=== PATIENT | male | born 1965 | race American Indian/Alaskan Native ===

== ENCOUNTER 2016-12-01 14:17 | Inpatient (IN) | payer OTHER ==
[2016-12-01] MEDS ORDERED: CATAPRES PO ONE (15:36)
[2016-12-01] MEDS ORDERED: CATAPRES ONE (15:39)
--- NOTE | 2016-12-01 15:41 | Emergency Department Report ---
Chief Complaint: Headache Stated Complaint: OUT OF BREATH Time Seen by Provider: 12/01/16 15:30 - HPI History of Present Illness: Patient reports that he has shortness of breath and right side of his head is painful 9 out of 10. Patient has elevated blood pressure 222/132 he said he's been told that he has high blood pressure but does not take any medication. He said he is also having numbness to the right side of his head. He denies any chest pain. He is also having some blurry vision. - ROS Review of Systems: All systems are negative unless stated in HPI above - Exam Vital Signs: Vital Signs 12/01/16 14:43 Temperature 99.0 F Pulse Rate 87 Respiratory 17 Rate Blood Pressure 222/132 O2 Sat by Pulse 99 Oximetry Physical Exam: Gen.: This is a 51-year-old male well-nourished well-developed in no acute distress Mini neurological exam: Speech is clear and fluid, GCS of 15, gait is normal. Alert and oriented 3. No facial drooping noted. Lungs: Positive coughing, normal work of breathing. Clear to auscultate bilaterally. MSE screening note: Focused history and physical exam performed. Due to findings the following was ordered: ED Medical Decision Making - Medical Decision Making MDM: Patient screened by provider in triage area. Appropriate protocol initiated and patient to be seen in main ED by ED Disposition for MSE Condition: Stable
[2016-12-01 16:34] LABS: Alanine Aminotransferase 10 units/L (7-56); Albumin 4.3 g/dL (3.9-5); Albumin/Globulin Ratio 1.4 %; Alkaline Phosphatase 92 units/L (35-129); Anion Gap 15 mmol/L; BUN/Creatinine Ratio 14; Blood Urea Nitrogen 15 mg/dL (9-20); Calcium 9.6 mg/dL (8.4-10.2); Carbon Dioxide 29 mmol/L (22-30); Chloride 99.2 mmol/L (98-107); Glucose 103 mg/dL (75-100); Sodium 138 mmol/L (137-145); Total Protein 7.3 g/dL (6.3-8.2)
[2016-12-01 16:42] LABS: Basophils % (Auto) 1.2 % (0.0-1.8); Eosinophils % (Auto) 2.3 % (0.0-4.3); Hematocrit 46.3 % (35.5-45.6); Hemoglobin 15.5 gm/dl (11.8-15.2); Mean Corpuscular HGB Conc 34 % (32-34); Mean Corpuscular Hemoglobin 29 pg (28-32); Mean Corpuscular Volume 87 fl (84-94); Platelet Count 262 K/mm3 (140-440); Red Blood Count 5.31 M/mm3 (3.65-5.03); Red Cell Distribution Width 13.9 % (13.2-15.2); White Blood Count 9.5 K/mm3 (4.5-11.0)
--- NOTE | 2016-12-01 16:47 | Cat Scan Report ---
CT HEAD WITHOUT CONTRAST INDICATION: Headache. COMPARISON: None similar. FINDINGS: Noncontrast head CT demonstrates normal ventricles and sulci without acute or recent infarct, hemorrhage, mass effect or midline shift. No abnormal extra-axial fluid collections. Posterior fossa structures and basilar cisterns appear within normal limits. Mild right frontal, ethmoid and slight bilateral sphenoid sinus mucosal thickening partially imaged. Clear remainder imaged paranasal sinuses and mastoid air cells. Partially empty sella. Intact calvarium. Normal overlying scalp soft tissues. Few radiopaque dental material incidentally noted. Cervical spondylosis. CONCLUSION: No acute intracranial CT abnormality with various other findings, as described. Thank you for the opportunity to participate in this patient's care.
[2016-12-01 16:53] LABS: INR 0.94 (0.87-1.13)
[2016-12-02] MEDS ORDERED: ATROVENT IH ONE (03:32)
[2016-12-02] MEDS ORDERED: APRESOLINE IV ONE ×3 (03:32→20:57)
[2016-12-02] MEDS ORDERED: PROVENTIL IH ONE (03:32)
--- NOTE | 2016-12-02 03:35 | XRay Report ---
FINAL REPORT EXAM: XR CHEST ROUTINE 2V HISTORY: SOB TECHNIQUE: PA and lateral views of the chest were submitted. FINDINGS: Heart size mediastinum appear normal. The thoracic aorta is mildly tortuous. There blunting of the right costophrenic angle secondary to localized scarring versus small effusion. There are no localized infiltrates. The skeletal structures reveal mild disc degeneration in the thoracic spine. IMPRESSION: Small right-sided effusion versus localized scarring. No acute infiltrates or congestion.
[2016-12-02 04:24] LABS: Creatine Kinase MB 1.2 ng/mL (0.0-4.0)
[2016-12-02 04:25] LABS: Creatine Kinase 37 units/L (55-170)
--- NOTE | 2016-12-02 04:39 | Emergency Department Report ---
ED Shortness of Breath HPI - General Chief Complaint: Headache Stated Complaint: OUT OF BREATH Time Seen by Provider: 12/01/16 15:41 Source: patient Mode of arrival: Ambulatory Limitations: No Limitations - History of Present Illness Initial Comments: 51-year-old male with a past medical history hypertension and tobacco use presents to the hospital complaining of shortness of breath and headache. Patient has had intermittent right-sided headache 2 weeks. Described as throbbing, aching, and burning. Pain rated 9/10 in intenisty. No agrgrevating or alleviating factors. Patient denies nausea, vomiting, focal weakness or numbness. Patient also complaining of shortness of breath for 1-2 months. Worse with exertion. Positive productive cough reported without fever. Patient continuously denies chest pain. Intermittent wheezing reported. No calf tenderness, recent travel, leg edema. Patient presents significantly hypertensive but states he has not had any blood pressure medication in several years. He denies any previous stress test or family history of CAD/[place]. - Related Data Allergies Allergy/AdvReac Type Severity Reaction Status Date / Time No Known Allergies Allergy Unverified 12/01/16 14:42 ED Review of Systems ROS: Stated complaint: OUT OF BREATH Other details as noted in HPI Comment: All other systems reviewed and negative Other: Constitutional: No fevers chills Eyes: No eye pain visual changes ENT: No ear pain or throat pain Neck: Denies pain Respiratory: as per hpi Cardiovascular: Denies chest pain, palpitations, syncope GI: Denies abdominal pain, nausea, vomiting, diarrhea : Denies dysuria Musculoskeletal: Denies back pain, joint swelling Skin: Denies rash, lesions, erythema Neurologic: as per hpi Psychiatric: Denies suicidal ideation, hallucinations ED Past Medical Hx - Past Medical History Hx Hypertension: Yes - Surgical History Additional Surgical History: right lung surgery for an infection in 2003 - Social History Smoking Status: Current Every Day Smoker Substance Use Type: Alcohol ED Physical Exam - General Limitations: No Limitations - Other Other exam information: General: No limitations, patient is alert in no acute distress Head exam: Atraumatic, normocephalic Eyes exam: Normal appearance ENT: Moist mucous membrane, normal oropharynx Neck exam: Normal inspection, full range of motion, no meningismus nontender Respiratory exam: Bilateral wheezing without tachypnea or accessory muscle use Cardiovascular: Normal rate and rhythm, normal heart sounds Abdomen: Soft, nondistended, and nontender, with normal bowel sounds, no rebound, or guarding Extremity: Full range of motion normal inspection no deformity, no calf tenderness or edema Back: Normal Inspection, full range of motion, no tenderness Neurologic: Alert, oriented x3, cranial nerves intact, no motor or sensory deficit Psychiatric: normal affect, normal mood Skin: Warm, dry, intact ED Course Vital Signs 12/01/16 12/02/16 12/02/16 14:43 02:29 03:05 Temperature 99.0 F 98.5 F Pulse Rate 87 79 81 Pulse Rate [ Posterior Bilateral Bases ] Respiratory 17 18 18 Rate Respiratory Rate [Posterior Bilateral Bases] Blood Pressure 222/132 213/137 Blood Pressure 196/130 [Right] O2 Sat by Pulse 99 98 99 Oximetry 12/02/16 12/02/16 12/02/16 03:35 03:45 04:23 Temperature Pulse Rate 70 80 Pulse Rate [ Posterior Bilateral Bases ] Respiratory 18 18 Rate Respiratory Rate [Posterior Bilateral Bases] Blood Pressure 203/116 Blood Pressure 207/128 [Right] O2 Sat by Pulse 99 99 Oximetry 12/02/16 04:31 Temperature Pulse Rate Pulse Rate [ 109 H Posterior Bilateral Bases ] Respiratory Rate Respiratory 20 Rate [Posterior Bilateral Bases] Blood Pressure Blood Pressure [Right] O2 Sat by Pulse Oximetry - Reevaluation(s) Reevaluation #1: 12/02/16 04:38 Patient clonidine 0.2 mg with minimal improvement in blood pressure. Hydralazine IV also provided. ED Medical Decision Making - Lab Data Result diagrams: 12/01/16 15:56 12/01/16 15:56 Lab Results 12/01/16 12/01/16 12/01/16 Range/Units 15:56 15:56 15:56 WBC 9.5 (4.5-11.0) K/mm3 RBC 5.31 H (3.65-5.03) M/mm3 Hgb 15.5 H (11.8-15.2) gm/dl Hct 46.3 H (35.5-45.6) % MCV 87 (84-94) fl MCH 29 (28-32) pg MCHC 34 (32-34) % RDW 13.9 (13.2-15.2) % Plt Count 262 (140-440) K/mm3 Lymph % (Auto) 23.9 (13.4-35.0) % [place] % (Auto) 7.8 H (0.0-7.3) % Eos % (Auto) 2.3 (0.0-4.3) % Baso % (Auto) 1.2 (0.0-1.8) % Lymph # 2.3 (1.2-5.4) K/mm3 [place] # 0.7 (0.0-0.8) K/mm3 Eos # 0.2 (0.0-0.4) K/mm3 Baso # 0.1 (0.0-0.1) K/mm3 Seg Neutrophils % 64.8 (40.0-70.0) % Seg Neutrophils # 6.2 (1.8-7.7) K/mm3 PT 13.0 (12.2-14.9) Sec. INR 0.94 (0.87-1.13) Sodium 138 (137-145) mmol/L Potassium 5.0 (3.6-5.0) mmol/L Chloride 99.2 (98-107) mmol/L Carbon Dioxide 29 (22-30) mmol/L Anion Gap 15 mmol/L BUN 15 (9-20) mg/dL Creatinine 1.1 (0.8-1.5) mg/dL Estimated GFR > 60 ml/min BUN/Creatinine Ratio 14 % Glucose 103 H (75-100) mg/dL Calcium 9.6 (8.4-10.2) mg/dL Total Bilirubin 1.00 (0.1-1.2) mg/dL AST 12 (5-40) units/L ALT 10 (7-56) units/L Alkaline Phosphatase 92 (35-129) units/L Total Creatine Kinase (55-170) units/L CK-MB (CK-2) (0.0-4.0) ng/mL CK-MB (CK-2) Rel Index (0-4) Troponin T (0.00-0.029) ng/mL Total Protein 7.3 (6.3-8.2) g/dL Albumin 4.3 (3.9-5) g/dL Albumin/Globulin Ratio 1.4 % 12/02/ Range/Units 03:37 WBC (4.5-11.0) K/mm3 RBC (3.65-5.03) M/mm3 Hgb (11.8-15.2) gm/dl Hct (35.5-45.6) % MCV (84-94) fl MCH (28-32) pg MCHC (32-34) % RDW (13.2-15.2) % Plt Count (140-440) K/mm3 Lymph % (Auto) (13.4-35.0) % [place] % (Auto) (0.0-7.3) % Eos % (Auto) (0.0-4.3) % Baso % (Auto) (0.0-1.8) % Lymph # (1.2-5.4) K/mm3 [place] # (0.0-0.8) K/mm3 Eos # (0.0-0.4) K/mm3 Baso # (0.0-0.1) K/mm3 Seg Neutrophils % (40.0-70.0) % Seg Neutrophils # (1.8-7.7) K/mm3 PT (12.2-14.9) Sec. INR (0.87-1.13) Sodium (137-145) mmol/L Potassium (3.6-5.0) mmol/L Chloride (98-107) mmol/L Carbon Dioxide (22-30) mmol/L Anion Gap mmol/L BUN (9-20) mg/dL Creatinine (0.8-1.5) mg/dL Estimated GFR ml/min BUN/Creatinine Ratio % Glucose (75-100) mg/dL Calcium (8.4-10.2) mg/dL Total Bilirubin (0.1-1.2) mg/dL AST (5-40) units/L ALT (7-56) units/L Alkaline Phosphatase (35-129) units/L Total Creatine Kinase 37 L (55-170) units/L CK-MB (CK-2) 1.2 (0.0-4.0) ng/mL CK-MB (CK-2) Rel Index 3.2 (0-4) Troponin T < 0.010 (0.00-0.029) ng/mL Total Protein (6.3-8.2) g/dL Albumin (3.9-5) g/dL Albumin/Globulin Ratio % - EKG Data -: EKG Interpreted by Me (nsr rate 81,lae, lvh, lat t inv, qrs 103, qtc 510) - EKG Data When compared to previous EKG there are: no significant change (01/02/11) - Radiology Data Radiology results: report reviewed (cxr: small r pleural effusion vs scarring) CT head: No acute findings - Medical Decision Making Patient be admitted to the hospital for further blood pressure control, stress testing, and further treatment of reactive airway disease. Addition to by mouth clonidine patient received IV hydralazine, Solu-Medrol, and nebulizer treatments initiated for wheezing. Patient likely has COPD or bronchitis related to smoking and elevated blood pressure secondary to medication noncompliance. No signs of heart failure at this time - Differential Diagnosis mi, unstable angina,copd, bronchitis, effusion, htn emergency, ich Critical Care Time: No Critical care attestation.: If time is entered above; I have spent that time in minutes in the direct care of this critically ill patient, excluding procedure time. ED Disposition Clinical Impression: Uncontrolled hypertension, Noncompliance with medication regimen, Wheezing, Tobacco use, Dyspnea on exertion Disposition: OP ADMIT IP TO THIS HOSP Is pt being admited?: Yes Condition: Stable Time of Disposition: 04:44 (Dr Lang/hosp)
[2016-12-02] MEDS ORDERED: ZOFRAN IV PRN (05:53)
[2016-12-02] MEDS ORDERED: DULCOLAX PR PRN (05:53)
[2016-12-02] MEDS ORDERED: MILK OF MAGNESIA PO PRN (05:53)
[2016-12-02] MEDS ORDERED: TYLENOL PO PRN (05:53)
--- NOTE | 2016-12-02 05:57 | History and Physical Report ---
History of Present Illness Date of examination: 12/02/16 History of present illness: 51-year-old and a history of hypertension, off medication since 2006 [facility] emergency room because he developed shortness of breath. He has been having shortness of breath over the last 6 weeks but his symptoms worsened today, also complaining of dyspnea and exertion, no PND or orthopnea. Also complaining of lower back pain, sharp, intermittent in nature lasting 5 minutes, no radiation cannot identify exacerbating or relieving factors Review Of Systems: Constitutional: no weight loss Ears, eyes, nose, mouth and throat: no nasal congestion, no nasal discharge, no sinus pressure, blurry vision, diplopia Neck: No neck pain or rigidity. Cardiovascular: chest pain, orthopnea, palpitations Respiratory: No cough Gastrointestinal: abdominal pain, hematochezia Genitourinary : no dysuria, frequency , hematuria Musculoskeletal: no muscle ache Integumentary: no rash, no pruritis Neurological: no parathesias, focal weakness Endocrine: no cold or heat intolerance, no polyuria or polydipsia Hematologic/Lymphatic: no easy bruising, no easy bleeding, no gland swelling Allergic/Immunologic: no urticaria, no angioedema. PAST MEDICAL HISTORY:hypertension PAST SURGICAL HISTORY: Surgery on lung FAILY HISTORY:hypertension SOCIAL HISTORY: Smoke a pack a day, drinks 6 beers on weekend, no drugs Medications and Allergies Allergies Allergy/AdvReac Type Severity Reaction Status Date / Time No Known Allergies Allergy Unverified 12/01/16 14:42 Home Medications Medication Instructions Recorded Confirmed Last Taken Type No Known Home Medications [No 12/02/16 12/02/16 Unknown History Reported Home Medications] Exam - Physical Exam Narrative exam: Gen. appearance: Patient lying in bed in no acute distress HEENT: Normocephalic/atraumatic, pupils equal round reactive to light, extra alkaline movement intact, no scleral icterus, no JVD or thyromegaly or nodule, neck is supple, mucous membrane moist, no erythema or exudate Heart: S1-S2, regular rate and rhythm Lungs: Clear to auscultation bilateral breathing comfortable Abdomen: Positive bowel sounds, nontender, nondistended, no organomegaly Extremities: No edema, cyanosis, clubbing Neuro:: Oriented 3 , cranial nerves II-12 intact, speech, motor intact Skin: No rash, nodules, warm dry - Constitutional Vitals: Temp Pulse Resp BP Pulse Ox 98.5 F 82 22 180/104 99 12/02/16 02:29 12/02/16 05:30 12/02/16 05:30 12/02/16 05:30 12/02/16 05:30 Results - Labs CBC & Chem 7: 12/03/16 05:52 12/01/16 15:56 Labs: Abnormal lab results 12/01/16 12/01/16 12/02/16 Range/Units 15:56 15:56 03:37 RBC 5.31 H (3.65-5.03) M/mm3 Hgb 15.5 H (11.8-15.2) gm/dl Hct 46.3 H (35.5-45.6) % [place] % (Auto) 7.8 H (0.0-7.3) % Glucose 103 H (75-100) mg/dL Total Creatine Kinase 37 L (55-170) units/L - Imaging and Cardiology EKG: image reviewed CT Scan - head: report reviewed Assessment and Plan Assessment Hypertensive urgency, malignant Shortness of breath Noncompliance Plan Admit to medicine Start IV hydralazine as needed for blood pressure control, Norvasc Obtain CAT scan of the chest abdomen and pelvis DVT prophylaxis Compliance discuss with patient, verbalize understanding
[2016-12-02] MEDS ORDERED: NACL ONE ×2 (06:04→06:18)
--- NOTE | 2016-12-02 07:19 | Cat Scan Report ---
CT LUMBAR SPINE WITHOUT CONTRAST HISTORY: Back pain. TECHNIQUE: Helical CT imaging in 1.25 mm intervals. Sagittal and coronal reformatted images. FINDINGS: Normal height and alignment lumbar vertebra. No compression deformity, subluxation or bone lesion. Multilevel degenerative changes are identified. Mild disc space narrowing at L4-5. Severe disc space narrowing with osteophytosis at L5-S1. Bridging or near bridging anterior osteophytes are identified at T12-L1 and L4-5. The remaining levels demonstrate mild degenerative disc disease and facet arthropathy. Although evaluation intraspinal contents is limited on CT, no high-grade central canal stenosis or large herniation is suspected. There is moderate bilateral neural foraminal narrowing at L4-5 estimated at least 50%. IMPRESSION: Lumbar spondylosis as described above.
--- NOTE | 2016-12-02 07:23 | Cat Scan Report ---
CT SCAN OF THE ABDOMEN AND PELVIS WITH CONTRAST: HISTORY: Back pain. TECHNIQUE: Helical CT in 1.25mm intervals following IV contrast. Sagittal and coronal reconstructions. FINDINGS: The liver is normal in size and is without focal defect. No gallstones or biliary dilatation are noted. The spleen and pancreas demonstrate a normal size and attenuation with no evidence of abnormal mass. The kidneys are normal in size and position with no evidence of hydronephrosis or mass. 5 mm calyceal stone in the mid left kidney is noted. The adrenal glands are normal. There is no intestinal obstruction or ascites. Normal appendix. The abdominal aorta is normal caliber and without stenosis. No abnormalities are identified within the retroperitoneum or mesentery. There is no evidence of peritoneal air or fluid. There is no evidence of any abnormal masses or fluid collections within the pelvis. No adenopathy is identified. The bladder is normal. Moderate thoracolumbar spondylosis is noted. IMPRESSION: 5 mm nonobstructing left renal stone. No acute process identified.
--- NOTE | 2016-12-02 07:28 | Cat Scan Report ---
CTA CHEST: History: Shortness of breath. Technique: Helical CT following IV contrast. Pulmonary embolus protocol. Sagittal and coronal reformatted images. Rotational MIP images. Findings: Contrast bolus is satisfactory. No pulmonary embolus is identified. Heart size is within normal limits. The aorta is normal caliber and within normal limits. No pericardial effusion. The tracheobronchial tree and esophagus are unremarkable. The thyroid gland is normal size. 7 mm calcification is noted in the lateral left thyroid lobe. No suspicious nodule. The lungs are well-aerated. Minor subpleural scarring is noted at the lobe bases, otherwise the lungs are clear. No significant parenchymal lung disease. No pleural effusion or pneumothorax. Moderate multilevel thoracic spondylosis. No fracture or destructive bony lesion. Impression: No acute cardiopulmonary process identified. Chronic findings outlined above.
[2016-12-02 07:42] LABS: Creatine Kinase MB 1.2 ng/mL (0.0-4.0)
[2016-12-02 07:47] LABS: Creatine Kinase 35 units/L (55-170)
[2016-12-02] MEDS: NORVASC PO SCH (09:09)
[2016-12-02] MEDS: APRESOLINE IV PRN ×2 (09:09→17:05)
[2016-12-02] MEDS: LOVENOX SUB-Q SCH (09:10)
[2016-12-02] MEDS ORDERED: LOVENOX SUB-Q SCH (10:00)
[2016-12-02] MEDS ORDERED: PNEUMOVAX 23 IM ONE (12:00)
[2016-12-02] MEDS ORDERED: Fluarix Quad 2017-2018(36 MOS+) IM ONE (12:00)
[2016-12-02 12:21] LABS: Creatine Kinase 42 units/L (55-170); Creatine Kinase MB 1.3 ng/mL (0.0-4.0)
[2016-12-02] MEDS: PERCOCET 5/325 PO PRN (21:54)
[2016-12-03] MEDS ORDERED: APRESOLINE IV ONE (01:29)
[2016-12-03 06:53] LABS: Basophils % (Auto) 0.8 % (0.0-1.8); Eosinophils % (Auto) 0.1 % (0.0-4.3); Hematocrit 43.5 % (35.5-45.6); Hemoglobin 14.9 gm/dl (11.8-15.2); Mean Corpuscular HGB Conc 34 % (32-34); Mean Corpuscular Hemoglobin 30 pg (28-32); Mean Corpuscular Volume 87 fl (84-94); Platelet Count 256 K/mm3 (140-440); Red Blood Count 5.03 M/mm3 (3.65-5.03); Red Cell Distribution Width 13.9 % (13.2-15.2); White Blood Count 10.9 K/mm3 (4.5-11.0)
[2016-12-03 07:19] LABS: Anion Gap 16 mmol/L; BUN/Creatinine Ratio 18; Blood Urea Nitrogen 22 mg/dL (9-20); Calcium 9.2 mg/dL (8.4-10.2); Carbon Dioxide 27 mmol/L (22-30); Chloride 101.7 mmol/L (98-107); Glucose 103 mg/dL (75-100); Potassium 4.1 mmol/L (3.6-5.0); Sodium 141 mmol/L (137-145)
[2016-12-03] MEDS: NORVASC PO SCH (09:16)
[2016-12-03] MEDS: LOVENOX SUB-Q SCH (09:16)
--- NOTE | 2016-12-03 17:13 | Progress Note ---
Assessment and Plan Assessment and plan: 51 years old AAM with hypertension untreated for years due to medications side effects (erectile dysfunction), presented for shortness of breath and found to be in hypertensive emergency with BP 222/132 Hypertensive emergency Received IV antihypertensives, then started on po amlodipine BP still significantly elevated today Add HCTZ and hydralazine and monitor closely PRN IV hydralazine for SBP>170 Check UA to look for end organ damage Obtain echocardiogram Noncompliance Extensively counseled regarding importance of adherence to treatment and follow- up appointments Obesity Counseled regarding importance of losing weight and lifestyle changes DVT prophylaxis Dispo CM consulted for assistance with PCP f/u History Interval history: BP still significantly elevated, but feeling better Hospitalist Physical - Constitutional Vitals: Temp Pulse Resp BP Pulse Ox 98.4 F 86 16 185/107 98 12/03/16 15:34 12/03/16 15:34 12/03/16 15:34 12/03/16 15:34 12/03/16 15:34 General appearance: Present: no acute distress, obese - EENT Eyes: Present: PERRL, EOM intact. Absent: scleral icterus, conjunctival injection - Neck Neck: Present: supple, normal ROM. Absent: masses or JVD - Respiratory Respiratory effort: normal Respiratory: bilateral: diminished, negative: rhonchi, wheezing - Cardiovascular Rhythm: regular Heart Sounds: Present: S1 & S2. Absent: systolic murmur - Extremities Extremities: no ischemia - Abdominal General gastrointestinal: soft, non-tender, non-distended, normal bowel sounds - Psychiatric Psychiatric: cooperative, other (poor judgment) - Neurologic Neurologic: CNII-XII intact, no focal deficits Results - Labs CBC & Chem 7: 12/03/16 05:52 12/03/16 05:52 Labs: Laboratory Last Values WBC 10.9 K/mm3 (4.5-11.0) 12/03/16 05:52 RBC 5.03 M/mm3 (3.65-5.03) 12/03/16 05:52 Hgb 14.9 gm/dl (11.8-15.2) 12/03/16 05:52 Hct 43.5 % (35.5-45.6) 12/03/16 05:52 MCV 87 fl (84-94) 12/03/16 05:52 MCH 30 pg (28-32) 12/03/16 05:52 MCHC 34 % (32-34) 12/03/16 05:52 RDW 13.9 % (13.2-15.2) 12/03/16 05:52 Plt Count 256 K/mm3 (140-440) 12/03/16 05:52 Lymph % (Auto) 14.1 % (13.4-35.0) 12/03/16 05:52 [place] % (Auto) 11.8 % (0.0-7.3) H 12/03/16 05:52 Eos % (Auto) 0.1 % (0.0-4.3) 12/03/16 05:52 Baso % (Auto) 0.8 % (0.0-1.8) 12/03/16 05:52 Lymph # 1.5 K/mm3 (1.2-5.4) 12/03/16 05:52 [place] # 1.3 K/mm3 (0.0-0.8) H 12/03/16 05:52 Eos # 0.0 K/mm3 (0.0-0.4) 12/03/16 05:52 Baso # 0.1 K/mm3 (0.0-0.1) 12/03/16 05:52 Seg Neutrophils % 73.2 % (40.0-70.0) H 12/03/16 05:52 Seg Neutrophils # 8.0 K/mm3 (1.8-7.7) H 12/03/16 05:52 PT 13.0 Sec. (12.2-14.9) 12/01/16 15:56 INR 0.94 (0.87-1.13) 12/01/16 15:56 Sodium 141 mmol/L (137-145) 12/03/16 05:52 Potassium 4.1 mmol/L (3.6-5.0) 12/03/16 05:52 Chloride 101.7 mmol/L (98-107) 12/03/16 05:52 Carbon Dioxide 27 mmol/L (22-30) 12/03/16 05:52 Anion Gap 16 mmol/L 12/03/16 05:52 BUN 22 mg/dL (9-20) H 12/03/16 05:52 Creatinine 1.2 mg/dL (0.8-1.5) 12/03/16 05:52 Estimated GFR > 60 ml/min 12/03/16 05:52 BUN/Creatinine Ratio 18 % 12/03/16 05:52 Glucose 103 mg/dL (75-100) H 12/03/16 05:52 Calcium 9.2 mg/dL (8.4-10.2) 12/03/16 05:52 Total Bilirubin 1.00 mg/dL (0.1-1.2) 12/01/16 15:56 AST 12 units/L (5-40) 12/01/16 15:56 ALT 10 units/L (7-56) 12/01/16 15:56 Alkaline Phosphatase 92 units/L (35-129) 12/01/16 15:56 Total Creatine Kinase 42 units/L (55-170) L 12/02/16 11:38 CK-MB (CK-2) 1.3 ng/mL (0.0-4.0) 12/02/16 11:38 CK-MB (CK-2) Rel Index 3.0 (0-4) 12/02/16 11:38 Troponin T < 0.010 ng/mL (0.00-0.029) 12/02/16 11:38 Total Protein 7.3 g/dL (6.3-8.2) 12/01/16 15:56 Albumin 4.3 g/dL (3.9-5) 12/01/16 15:56 Albumin/Globulin Ratio 1.4 % 12/01/16 15:56 - Imaging and Cardiology EKG: image reviewed Chest x-ray: image reviewed CT scan - chest: report reviewed CT Scan - head: report reviewed (no acute abnormality)
[2016-12-03] MEDS: APRESOLINE PO SCH ×2 (17:30→22:06)
[2016-12-03] MEDS: HCTZ PO SCH (17:30)
[2016-12-03 18:45] LABS: Bilirubin,Urine NEG (Negative); Blood,Urine NEG (Negative); Ketones,Urine NEG (Negative); Leukocyte Esterase,Urine TR (Negative); Mucus,Urine FEW /HPF; Nitrite,Urine NEG (Negative)
[2016-12-04] MEDS: PERCOCET 5/325 PO PRN ×2 (01:05→18:34)
[2016-12-04] MEDS: APRESOLINE PO SCH ×3 (06:00→18:24)
[2016-12-04] MEDS: HCTZ PO SCH (09:11)
[2016-12-04] MEDS: NORVASC PO SCH (09:11)
[2016-12-04] MEDS: LOVENOX SUB-Q SCH (09:12)
[2016-12-04] MEDS: APRESOLINE IV PRN ×2 (14:47→23:44)
[2016-12-04] MEDS ORDERED: APRESOLINE IV ONE (16:00)
--- NOTE | 2016-12-04 16:13 | Progress Note ---
Assessment and Plan Assessment and plan: 51 years old AAM with hypertension untreated for years due to medications side effects (erectile dysfunction), presented for shortness of breath and found to be in hypertensive emergency with BP 222/132 Hypertensive emergency Received IV antihypertensives, then started on po amlodipine BP still significantly elevated, HCTZ and hydralazine added SBP still in 170-180s today, increase hydralazine dose ECHO obtained, result pending UA negative for RBC Noncompliance Extensively counseled regarding importance of adherence to treatment and follow- up appointments Obesity Counseled regarding importance of losing weight and lifestyle changes DVT prophylaxis Dispo CM consulted for assistance with PCP f/u History Interval history: no complaints, but BP still elevated significantly Hospitalist Physical - Constitutional Vitals: Temp Pulse Resp BP Pulse Ox 98.7 F 121 H 20 180/100 96 12/04/16 14:43 12/04/16 14:47 12/04/16 14:43 12/04/16 14:47 12/04/16 14:43 General appearance: Present: no acute distress, obese - EENT Eyes: Present: PERRL, EOM intact - Neck Neck: Present: supple, normal ROM. Absent: masses or JVD - Respiratory Respiratory effort: normal Respiratory: bilateral: CTA, negative: rhonchi, wheezing - Cardiovascular Rhythm: regular Heart Sounds: Present: S1 & S2. Absent: systolic murmur - Extremities Extremities: no ischemia - Abdominal General gastrointestinal: soft, non-tender, non-distended, normal bowel sounds - Psychiatric Psychiatric: cooperative - Neurologic Neurologic: CNII-XII intact, no focal deficits Results - Labs CBC & Chem 7: 12/03/16 05:52 12/03/16 05:52 Labs: Laboratory Last Values WBC 10.9 K/mm3 (4.5-11.0) 12/03/16 05:52 RBC 5.03 M/mm3 (3.65-5.03) 12/03/16 05:52 Hgb 14.9 gm/dl (11.8-15.2) 12/03/16 05:52 Hct 43.5 % (35.5-45.6) 12/03/16 05:52 MCV 87 fl (84-94) 12/03/16 05:52 MCH 30 pg (28-32) 12/03/16 05:52 MCHC 34 % (32-34) 12/03/16 05:52 RDW 13.9 % (13.2-15.2) 12/03/16 05:52 Plt Count 256 K/mm3 (140-440) 12/03/16 05:52 Lymph % (Auto) 14.1 % (13.4-35.0) 12/03/16 05:52 [place] % (Auto) 11.8 % (0.0-7.3) H 12/03/16 05:52 Eos % (Auto) 0.1 % (0.0-4.3) 12/03/16 05:52 Baso % (Auto) 0.8 % (0.0-1.8) 12/03/16 05:52 Lymph # 1.5 K/mm3 (1.2-5.4) 12/03/16 05:52 [place] # 1.3 K/mm3 (0.0-0.8) H 12/03/16 05:52 Eos # 0.0 K/mm3 (0.0-0.4) 12/03/16 05:52 Baso # 0.1 K/mm3 (0.0-0.1) 12/03/16 05:52 Seg Neutrophils % 73.2 % (40.0-70.0) H 12/03/16 05:52 Seg Neutrophils # 8.0 K/mm3 (1.8-7.7) H 12/03/16 05:52 PT 13.0 Sec. (12.2-14.9) 12/01/16 15:56 INR 0.94 (0.87-1.13) 12/01/16 15:56 Sodium 141 mmol/L (137-145) 12/03/16 05:52 Potassium 4.1 mmol/L (3.6-5.0) 12/03/16 05:52 Chloride 101.7 mmol/L (98-107) 12/03/16 05:52 Carbon Dioxide 27 mmol/L (22-30) 12/03/16 05:52 Anion Gap 16 mmol/L 12/03/16 05:52 BUN 22 mg/dL (9-20) H 12/03/16 05:52 Creatinine 1.2 mg/dL (0.8-1.5) 12/03/16 05:52 Estimated GFR > 60 ml/min 12/03/16 05:52 BUN/Creatinine Ratio 18 % 12/03/16 05:52 Glucose 103 mg/dL (75-100) H 12/03/16 05:52 Calcium 9.2 mg/dL (8.4-10.2) 12/03/16 05:52 Total Bilirubin 1.00 mg/dL (0.1-1.2) 12/01/16 15:56 AST 12 units/L (5-40) 12/01/16 15:56 ALT 10 units/L (7-56) 12/01/16 15:56 Alkaline Phosphatase 92 units/L (35-129) 12/01/16 15:56 Total Creatine Kinase 42 units/L (55-170) L 12/02/16 11:38 CK-MB (CK-2) 1.3 ng/mL (0.0-4.0) 12/02/16 11:38 CK-MB (CK-2) Rel Index 3.0 (0-4) 12/02/16 11:38 Troponin T < 0.010 ng/mL (0.00-0.029) 12/02/16 11:38 Total Protein 7.3 g/dL (6.3-8.2) 12/01/16 15:56 Albumin 4.3 g/dL (3.9-5) 12/01/16 15:56 Albumin/Globulin Ratio 1.4 % 12/01/16 15:56 Urine Color Yellow (Yellow) 12/03/16 Unknown Urine Turbidity Clear (Clear) 12/03/16 Unknown Urine pH 5.0 (5.0-7.0) 12/03/16 Unknown Ur Specific [place] 1.024 (1.003-1.030) 12/03/16 Unknown Urine Protein 100 mg/dl mg/dL (Negative) 12/03/16 Unknown Urine Glucose (UA) Neg mg/dL (Negative) 12/03/16 Unknown Urine Ketones Neg mg/dL (Negative) 12/03/16 Unknown Urine Blood Neg (Negative) 12/03/16 Unknown Urine Nitrite Neg (Negative) 12/03/16 Unknown Urine Bilirubin Neg (Negative) 12/03/16 Unknown Urine Urobilinogen 2.0 mg/dL (<2.0) 12/03/16 Unknown Ur Leukocyte Esterase Tr (Negative) 12/03/16 Unknown Urine WBC (Auto) 7.0 /HPF (0.0-6.0) H 12/03/16 Unknown Urine RBC (Auto) 2.0 /HPF (0.0-6.0) 12/03/16 Unknown U Epithel Cells (Auto) 2.0 /HPF (0-13.0) 12/03/16 Unknown Calcium Oxalate Crystal 3+ 12/03/16 Unknown Urine Mucus Few /HPF 12/03/16 Unknown
[2016-12-05] MEDS: PERCOCET 5/325 PO PRN (03:39)
[2016-12-05] MEDS ORDERED: APRESOLINE PO ONE (04:00)
[2016-12-05] MEDS: APRESOLINE PO SCH ×2 (08:08→13:42)
[2016-12-05] MEDS: NORVASC PO SCH (10:08)
[2016-12-05] MEDS: HCTZ PO SCH (10:08)
[2016-12-05] MEDS: LOVENOX SUB-Q SCH (10:09)
[2016-12-05 13:43] VITALS: BP 147/98
--- NOTE | 2016-12-05 14:11 | Discharge Summary ---
Providers - Providers Date of Admission: 12/02/16 05:53 Date of discharge: 12/05/16 Attending physician: MELODY RAI Primary care physician: PRINCESS SIBLEY MD Hospitalization Condition: Stable Exam - Constitutional Vitals: Temp Pulse Resp BP Pulse Ox 99.2 F 107 H 20 147/98 99 12/05/16 07:30 12/05/16 13:40 12/05/16 07:30 12/05/16 13:40 12/05/16 13:40 Plan Activity: advance as tolerated Diet: low cholesterol, low salt Follow up with: PRIMARY CARE, [Primary Care Provider] - 7 Days Prescriptions: amLODIPine [Norvasc] 10 mg PO QDAY #30 tablet hydrALAZINE [Apresoline TAB] 50 mg PO Q8HR #180 tablet Hydrochlorothiazide [HCTZ] 25 mg PO QDAY #30 tablet
== END 2016-12-05 15:54 | disposition home or self-care (01) | DRG 305 ==
LOC: ED 14:17 → 3A 12-02 05:53
PROVIDERS: ADMIT Internal Medicine; ATTEND Internal Medicine
DX: I16.0 Hypertensive urgency (principal); I10 Essential (primary) hypertension; F17.210 Nicotine dependence, cigarettes, uncomplicated; Z91.19 Patient's noncompliance with other medical treatment and regimen; E66.9 Obesity, unspecified; Z68.29 Body mass index [BMI] 29.0-29.9, adult
CPT/HCPCS: 36415; 70450; 71020; 71275; 72131; 74177; 80048; 80053; 81001; 82550; 82553; 84484; 85025; 85610; 90686; 90732; 93005; 93010; 93306; 94644; 96372; 96374; 96375; 96376; 99285; 99406; J0360; J1650; J2930; Q9967

== ENCOUNTER 2018-10-28 09:10 | Observation (INO) | payer OTHER ==
[2018-10-28] MEDS ORDERED: ASPIRIN PO ONE (09:26)
[2018-10-28 09:54] LABS: Hematocrit 46.3 % (35.5-45.6); Hemoglobin 15.3 gm/dl (11.8-15.2); Mean Corpuscular HGB Conc 33 % (32-34); Mean Corpuscular Volume 90 fl (84-94); Platelet Count 294 K/mm3 (140-440); Red Blood Count 5.13 M/mm3 (3.65-5.03); Red Cell Distribution Width 14.6 % (13.2-15.2)
--- NOTE | 2018-10-28 09:57 | XRay Report ---
CHEST 2 VIEWS INDICATION: Chest Pain. COMPARISON: CTA chest report dated 12/02/2016 FINDINGS: Support devices: None. Heart: Within normal limits. Lungs/pleura: No acute air space or interstitial disease. There is mild blunting of the right costop hrenic angle suggesting a small right pleural effusion or pleural thickening. No consolidation or pne umothorax. Additional findings: None. IMPRESSION: Small right pleural effusion versus chronic right pleural thickening. Signer Name: Dipak Warner Jr, MD Signed: 10/28/2018 9:53 AM Workstation Name: [id number]
[2018-10-28 10:05] LABS: BUN/Creatinine Ratio 13; Blood Urea Nitrogen 17 mg/dL (9-20); Calcium 9.1 mg/dL (8.4-10.2); Hemolysis Index 3
[2018-10-28] MEDS ORDERED: LOPRESSOR IV ONE (10:08)
--- NOTE | 2018-10-28 10:12 | Emergency Department Report ---
ED Chest Pain HPI - General Chief Complaint: Chest Pain Stated Complaint: CHEST PAIN/LFT LEG PAIN Time Seen by Provider: 10/28/18 10:07 Source: patient Mode of arrival: Ambulatory Limitations: No Limitations - History of Present Illness Initial Comments: Patient is a 53-year-old male that presents emergency room with complaints of chest pain 4 days. Patient states he went to an urgent care center because his blood pressure was so high. Patient states she's been off his blood pressure medications for 2 years. Patient's hasn't seen a doctor for 2 years. Patient's dates that his chest pain is better with rest and worse with exertion. Patient also complaining of cough 1 week. Patient states his cough is dry and nonproductive. Patient complains of shortness of breath and dyspnea on exertion. Patient states that shortness of breath better with rest and worse with exertion. Patient states that his shortness of breath has been going on fo r about 4 days. MD Complaint: chest pain -: Sudden Onset: during rest Pain Location: substernal, left chest Pain Radiation: none Severity scale (0 -10): 3 Quality: tightness Consistency: constant Improves With: rest Worsens With: exertion re: dyspnea. denies: nausea, vomting, diaphoresis, sense of impending doom Other Symptoms: cough. denies: fever, syncope, rash, acid taste in mouth, leg swelling, palpitations, burping Treatments Prior to Arrival: none Aspirin use within the Past 7 Days: (0) No - Related Data On Oral Contraceptives: No Previous Rx's Medication Instructions Recorded Last Taken Type amLODIPine [Norvasc] 10 mg PO QDAY #30 tablet 12/05/16 10/27/18 Rx hydrALAZINE [Apresoline TAB] 50 mg PO Q8HR #180 tablet 12/05/16 10/27/18 Rx hydroCHLOROthiazide [HCTZ] 25 mg PO QDAY #30 tablet 12/05/16 10/27/18 Rx Allergies Allergy/AdvReac Type Severity Reaction Status Date / Time No Known Allergies Allergy Unverified 12/01/16 14:42 Heart Score - HEART Score History: Moderately suspicious EKG: Non-specific Age: 45-65 Risk factors: 1-2 risk factors Troponin: < normal limit HEART Score: 4 ED Review of Systems ROS: Stated complaint: CHEST PAIN/LFT LEG PAIN Other details as noted in HPI Constitutional: denies: chills, fever Eyes: denies: eye pain, eye discharge, vision change ENT: denies: ear pain, throat pain Respiratory: cough, shortness of breath, SOB with exertion, SOB at rest. d enies: wheezing Cardiovascular: chest pain. denies: palpitations Endocrine: no symptoms reported Gastrointestinal: denies: abdominal pain, nausea, diarrhea Genitourinary: denies: urgency, dysuria Musculoskeletal: denies: back pain, joint swelling, arthralgia Skin: denies: rash, lesions Neurological: denies: headache, weakness, paresthesias Psychiatric: denies: anxiety, depression Hematological/Lymphatic: denies: easy bleeding, easy bruising ED Past Medical Hx - Past Medical History Previous Medical History?: Yes Hx Hypertension: Yes (Pt. reports, "I was medicated for high blood pressure a lot time ago.") Hx Heart Attack/AMI: No Hx Congestive Heart Failure: No Hx Diabetes: No Hx Deep Vein Thrombosis: No Hx GERD: No Hx Asthma: No Hx COPD: No (Pt states, "They said I might get it if I keep smoking".) Hx HIV: No - Surgical History Past Surgical History?: Yes Hx Coronary Stent: No Hx Open Heart Surgery: No Hx Pacemaker: No Hx Internal Defibrillator: No Hx Cholecystectomy: No Hx Appendectomy: No Hx Breast Surgery: No Additional Surgical History: right lung surgery for an infection in 2003 - Family History Family history: no significant - Social History Smoking Status: Current Every Day Smoker Substance Use Type: Alcohol, Marijuana - Medications Home Medications: Home Medications Medication Instructions Recorded Confirmed Last Taken Type amLODIPine [Norvasc] 10 mg PO QDAY #30 tablet 12/05/16 10/28/18 10/27/18 Rx hydrALAZINE [Apresoline TAB] 50 mg PO Q8HR #180 tablet 12/05/16 10/28/18 10/27/18 Rx hydroCHLOROthiazide [HCTZ] 25 mg PO QDAY #30 tablet 12/05/16 10/28/18 10/27/18 Rx ED Physical Exam - General Limitations: No Limitations General appearance: alert, in no apparent distress - Head Head exam: Present: atraumatic, normocephalic - Eye Eye exam: Present: normal appearance - ENT ENT exam: Present: mucous membranes moist - Neck Neck exam: Present: normal inspection - Respiratory Respiratory exam: Present: normal lung sounds bilaterally. Absent: respiratory distress - Cardiovascular Cardiovascular Exam: Present: regular rate, normal rhythm. Absent: systolic murmur, diastolic murmur, rubs, gallop - GI/Abdominal GI/Abdominal exam: Present: soft, normal bowel sounds - Rectal Rectal exam: Present: deferred - Extremities Exam Extremities exam: Present: normal inspection - Back Exam Back exam: Present: normal inspection - Neurological Exam Neurological exam: Present: alert, oriented X3 - Psychiatric Psychiatric exam: Present: normal affect, normal mood - Skin Skin exam: Present: warm, dry, intact, normal color. Absent: rash ED Course Vital Signs 10/28/18 10/28/18 10/28/18 09:24 10:08 10:15 Temperature 98.7 F Pulse Rate 112 H 91 H 94 H Respiratory 17 19 20 Rate Blood Pressure 208/124 207/119 Blood Pressure [Left] O2 Sat by Pulse 98 97 93 Oximetry 10/28/18 10/28/18 10/28/18 10:41 10:43 10:45 Temperature Pulse Rate 91 H 78 Respiratory 16 18 Rate Blood Pressure 201/121 184/122 Blood Pressure [Left] O2 Sat by Pulse 96 96 Oximetry 10/28/18 10/28/18 10/28/18 10:46 11:00 11:15 Temperature 98.4 F Pulse Rate 91 H 83 82 Respiratory 16 18 18 Rate Blood Pressure 187/124 187/124 Blood Pressure 201/121 [Left] O2 Sat by Pulse 96 91 98 Oximetry 10/28/18 10/28/18 10/28/18 11:31 11:43 12:02 Temperature Pulse Rate 79 75 82 Respiratory 13 22 Rate Blood Pressure 190/147 190/147 Blood Pressure 179/89 [Left] O2 Sat by Pulse 94 98 Oximetry 10/28/18 10/28/18 10/28/18 12:15 12:51 13:01 Temperature Pulse Rate 87 91 H 87 Respiratory 18 16 21 Rate Blood Pressure 179/89 190/147 178/96 Blood Pressure [Left] O2 Sat by Pulse 98 99 97 Oximetry 10/28/18 13:11 Temperature Pulse Rate 90 Respiratory 17 Rate Blood Pressure 178/96 Blood Pressure [Left] O2 Sat by Pulse 99 Oximetry - Reevaluation(s) Reevaluation #1: I discussed all results with patient. I discussed plan of care outpatient. Patient will be admitted to the hospitalist service. Patient agrees with plan of care. 10/28/18 12:02 - Consultations Consultation #1: Hospitalist consultation for admission. Hospitalist admit patient. Bridge orders place. 10/28/18 12:03 MELODIE score - Melodie Score Age > 65: (0) No Aspirin use within the Past 7 Days: (0) No 3 or more CAD Risk Factors: (0) No 2 or more Angina events in past 24 hrs: (1) Yes Known CAD with more than 50% Stenosis: (0) No Elevated Cardiac Markers: (0) No ST Deviation Greater than 0.5mm: (0) No MELODIE Score: 1 ED Medical Decision Making - Lab Data Result diagrams: 10/28/18 09:29 10/28/18 09:29 - EKG Data -: EKG Interpreted by Me EKG shows normal: sinus rhythm, axis, intervals, QRS complexes, ST-T waves Rate: normal - EKG Data Interpretation: LVH - Radiology Data Radiology results: report reviewed, image reviewed CHEST 2 VIEWS INDICATION: Chest Pain. COMPARISON: CTA chest report dated 12/02/2016 FINDINGS: Support devices: None. Heart: Within normal limits. Lungs/pleura: No acute air space or interstitial disease. There is mild blunting of the right costophrenic angle suggesting a small right pleural effusion or pleural thickening. No consolidation or pneumothorax. Additional findings: None. IMPRESSION: Small right pleural effusion versus chronic right pleural thickening. - Medical Decision Making She has 3-year-old male presents emergency room with complaints of chest pain, shortness of breath, dyspnea on exertion and elevated blood pressure. Patient noncompliant for 2 years blood pressure medications. Patient found to have malignant hypertension. Patient given multiple medications. Patient's blood pressure improved slightly. Patient's chest pain resolved in ER. Patient found to have a abnormal chest x-ray. Patient's EKG shows LVH and early repull. Patient's labs unremarkable. Patient admitted to the hospital service for further evaluation treatment and rule out ACS. - Differential Diagnosis ACS. Chest pain. SOB. malignant hypertension. DAUGHERTY. Critical Care Time: Yes Critical care attestation.: If time is entered above; I have spent that time in minutes in the direct care of this critically ill patient, excluding procedure time. Critical Care Time: 45 MINUTES ED Disposition Clinical Impression: Malignant hypertension, Uncontrolled hypertension, Noncompliance with medication regimen, Dyspnea on exertion, SOB (shortness of breath) Chest pain Qualifiers: Chest pain type: unspecified Qualified Code(s): R07.9 - Chest pain, unspecified Disposition: OP ADMIT IP TO THIS HOSP Is pt being admited?: Yes Does the pt Need Aspirin: No Condition: Critical Time of Disposition: 12:05
[2018-10-28] MEDS ORDERED: APRESOLINE ONE (11:39)
[2018-10-28] MEDS ORDERED: APRESOLINE IV ONE (11:41)
[2018-10-28 12:13] LABS: Band Neutrophils # (Manual) 0.1 K/mm3; Platelet Estimate Consistent w Auto; RBC Morphology Normal; Total Cells Counted 100
[2018-10-28] MEDS: APRESOLINE IV PRN ×2 (14:24→21:26)
[2018-10-28] MEDS: COZAAR PO SCH (21:25)
[2018-10-28] MEDS ORDERED: COREG PO SCH (22:00)
--- NOTE | 2018-10-29 00:29 | History and Physical Report ---
History of Present Illness Date of examination: 10/28/18 Date of admission: 10/28/18 12:07 Chief complaint: Chest pain for 4 days History of present illness: 52-year-old with history of hypertension--comes in for chest pain of 4 days' duration. Noncompliant for the last 2 years.Chest pain is retrosternal. Nonradiating. Patient went to urgent care and they found his blood pressure to be very high. Patient's chest pressure is better with rest and worsens with exertion. Patient also has shortness of breath on exertion for last 4 days. No radiation. No palpitations. No diaphoresis. Past Medical History Previous Medical History?: Yes Hypertension - NON COMPLIANT FOR 2 YEARS Surgical History Past Surgical History?: Yes Additnoncompliantional Surgical History: right lung surgery for an infection in 2003 Family History htnory Social History Smoking Status: Current Every Day Smoker--pack a day Substance Use Type: Alcohol, Marijuana - Medications Home Medications: Home Medications Medication Instructions Recorded Confirmed Last Taken Type amLODIPine [Norvasc] 10 mg PO QDAY #30 tablet 12/05/16 10/28/18 10/27/18 Rx hydrALAZINE [Apresoline TAB] 50 mg PO Q8HR #180 tablet 12/05/16 10/28/18 10/27/18 Rx hydroCHLOROthiazide [HCTZ] 25 mg PO QDAY #30 tablet 12/05/16 10/28/18 10/27/18 Rx Review of Systems ROS: Stated complaint: CHEST PAIN/LFT LEG PAIN Other details as noted in HPI Constitutional: denies: chills, fever Eyes: denies: eye pain, eye discharge, vision change ENT: denies: ear pain, throat pain Respiratory: cough, shortness of breath, SOB with exertion, SOB at rest. denies: wheezing Cardiovascular: chest pain. denies: palpitations Endocrine: no symptoms reported Gastrointestinal: denies: abdominal pain, nausea, diarrhea Genitourinary: denies: urgency, dysuria Musculoskeletal: denies: back pain, joint swelling, arthralgia Skin: denies: rash, lesions Neurological: denies: headache, weakness, paresthesias Psychiatric: denies: anxiety, depression Hematological/Lymphatic: denies: easy bleeding, easy bruising Medications and Allergies Allergies Allergy/AdvReac Type Severity Reaction Status Date / Time No Known Allergies Allergy Unverified 12/01/16 14:42 Home Medications Medication Instructions Recorded Confirmed Last Taken Type amLODIPine [Norvasc] 10 mg PO QDAY #30 tablet 12/05/16 10/28/18 10/27/18 Rx hydrALAZINE [Apresoline TAB] 50 mg PO Q8HR #180 tablet 12/05/16 10/28/18 10/27/18 Rx hydroCHLOROthiazide [HCTZ] 25 mg PO QDAY #30 tablet 12/05/16 10/28/18 10/27/18 Rx Active Meds: Active Medications Carvedilol (Coreg) 12.5 mg PO Q12HR [facility] Last Admin: 10/28/18 21:26 Dose: 12.5 mg Documented by: Hydralazine HCl (Apresoline) 10 mg IV Q3HR PRN PRN Reason: Sys BP > 160 Last Admin: 10/28/18 21:26 Dose: 10 mg Documented by: Losartan Potassium (Cozaar) 100 mg PO Q12HR [facility] Last Admin: 10/28/18 21:25 Dose: 100 mg Documented by: Nifedipine (Procardia Xl) 60 mg PO QDAY [facility] Exam - Constitutional Vitals: Temp Pulse Resp BP Pulse Ox 98.9 F 84 18 187/95 97 10/28/18 20:58 10/28/18 20:58 10/28/18 20:58 10/28/18 21:26 10/28/18 20:58 General appearance: Present: no acute distress, well-nourished - EENT Eyes: Present: PERRL ENT: hearing intact, clear oral mucosa - Neck Neck: Present: supple, normal ROM - Respiratory Respiratory effort: normal Respiratory: bilateral: CTA - Cardiovascular Heart rate: 75 Rhythm: regular (75) Heart Sounds: Present: S1 & S2. Absent: rub, click - Extremities Extremities: no ischemia, pulses intact, pulses symmetrical, No edema Peripheral Pulses: within normal limits - Abdominal General gastrointestinal: Present: soft, non-tender, non-distended, normal bowel sounds Male genitourinary: Present: normal - Rectal Rectal Exam: deferred - Integumentary Integumentary: Present: clear, warm, dry - Musculoskeletal Musculoskeletal: gait normal, strength equal bilaterally - Psychiatric Psychiatric: appropriate mood/affect, intact judgment & insight - Neurologic Neurologic: CNII-XII intact, moves all extremities - Allied Health Allied health notes reviewed: nursing, case management Results - Labs CBC & Chem 7: 10/28/18 09:29 10/28/18 09:29 Labs: Laboratory Last Values WBC 5.7 K/mm3 (4.5-11.0) 10/28/18 09:29 RBC 5.13 M/mm3 (3.65-5.03) H 10/28/18 09:29 Hgb 15.3 gm/dl (11.8-15.2) H 10/28/18 09:29 Hct 46.3 % (35.5-45.6) H 10/28/18 09:29 MCV 90 fl (84-94) 10/28/18 09: MCH 30 pg (28-32) 10/28/18 09:29 MCHC 33 % (32-34) 10/28/18 09:29 RDW 14.6 % (13.2-15.2) 10/28/18 09:29 Plt Count 294 K/mm3 (140-440) 10/28/18 09:29 Add Manual Diff Complete 10/28/18 09:29 Total Counted 100 10/28/18 09:29 Seg Neuts % (Manual) 51.0 % (40.0-70.0) 10/28/18 09:29 1.0 % 10/28/18 09:29 33.0 % (13.4-35.0) 10/28/18 09:29 Reactive Lymphs % (Man) 1.0 % 10/28/18 09:29 10.0 % (0.0-7.3) H 10/28/18 09:29 3.0 % (0.0-4.3) 10/28/18 09:29 1.0 % (0.0-1.8) 10/28/18 09:29 0 % 10/28/18 09:29 0 % 10/28/18 09:29 0 % 10/28/18 09:29 0 % 10/28/18 09:29 Nucleated RBC % Not Reportable 10/28/18 09:29 Seg Neutrophils # Man 2.9 K/mm3 (1.8-7.7) 10/28/18 09:29 Band Neutrophils # 0.1 K/mm3 10/28/18 09:29 1.9 K/mm3 (1.2-5.4) 10/28/18 09:29 Abs React Lymphs (Man) 0.1 K/mm3 10/28/18 09:29 0.6 K/mm3 (0.0-0.8) 10/28/18 09:29 0.2 K/mm3 (0.0-0.4) 10/28/18 09:29 0.1 K/mm3 (0.0-0.1) 10/28/18 09:29 0.0 K/mm3 10/28/18 09:29 0.0 K/mm3 10/28/18 09:29 0.0 K/mm3 10/28/18 09:29 Blast Cells # 0.0 K/mm3 10/28/18 09:29 WBC Morphology Not Reportable 10/28/18 09:29 Hypersegmented Neuts Not Reportable 10/28/18 09:29 Hyposegmented Neuts Not Reportable 10/28/18 09:29 Hypogranular Neuts Not Reportable 10/28/18 09:29 Not Reportable 10/28/18 09:29 Not Reportable 10/28/18 09:29 Not Reportable 10/28/18 09:29 Not Reportable 10/28/18 09:29 Not Reportable 10/28/18 09:29 Not Reportable 10/28/18 09:29 Consistent w auto 10/28/18 09:29 Not Reportable 10/28/18 09:29 Plt Clumps, EDTA Not Reportable 10/28/18 09:29 Not Reportable 10/28/18 09:29 Not Reportable 10/28/18 09:29 Not Reportable 10/28/18 09:29 Plt Morphology Comment Not Reportable 10/28/18 09:29 RBC Morphology Normal 10/28/18 09:29 Dimorphic RBCs Not Reportable 10/28/18 09:29 Not Reportable 10/28/18 09:29 Not Reportable 10/28/18 09:29 Not Reportable 10/28/18 09:29 Not Reportable 10/28/18 09:29 Not Reportable 10/28/18 09:29 Not Reportable 10/28/18 09:29 Not Reportable 10/28/18 09:29 Not Reportable 10/28/18 09:29 Not Reportable 10/28/18 09:29 Not Reportable 10/28/18 09:29 Not Reportable 10/28/18 09:29 Not Reportable 10/28/18 09:29 Not Reportable 10/28/18 09:29 Not Reportable 10/28/18 09:29 Not Reportable 10/28/18 09:29 Not Reportable 10/28/18 09:29 Not Reportable 10/28/18 09:29 Not Reportable 10/28/18 09:29 Not Reportable 10/28/18 09:29 Acanthocytes (Spur) Not Reportable 10/28/18 09:29 Rouleaux Not Reportable 10/28/18 09:29 Not Reportable 10/28/18 09:29 Not Reportable 10/28/18 09:29 Not Reportable 10/28/18 09:29 Not Reportable 10/28/18 09:29 Hem Pathologist Commnt No 10/28/18 09:29 Sodium 140 mmol/L (137-145) 10/28/18 09:29 Potassium 4.8 mmol/L (3.6-5.0) 10/28/18 09:29 Chloride 104.2 mmol/L (98-107) 10/28/18 09:29 Carbon Dioxide 24 mmol/L (22-30) 10/28/18 09:29 17 mmol/L 10/28/18 09:29 BUN 17 mg/dL (9-20) 10/28/18 09:29 1.3 mg/dL (0.8-1.5) 10/28/18 09:29 Estimated GFR > 60 ml/min 10/28/18 09:29 13 % 10/28/18 09:29 Glucose 71 mg/dL (75-100) L 10/28/18 09:29 Calcium 9.1 mg/dL (8.4-10.2) 10/28/18 09:29 < 0.010 ng/mL (0.00-0.029) 10/28/18 15:07 NT-Pro-B Natriuret Pep 845.6 pg/mL (0-900) 10/28/18 09:29 Short CBC 10/28/18 Range/Units 09:29 WBC 5.7 (4.5-11.0) K/mm3 Hgb 15.3 H (11.8-15.2) gm/dl Hct 46.3 H (35.5-45.6) % Plt Count 294 (140-440) K/mm3 BMP 10/28/18 09:29 Sodium 140 Potassium 4.8 Chloride 104.2 Carbon Dioxide 24 BUN 17 Creatinine 1.3 Glucose 71 L Calcium 9.1 Cardiac Enzymes 10/28/18 10/28/18 10/28/18 Range/Units 09:29 13:41 15:07 Troponin T < 0.010 < 0.010 < 0.010 (0.00-0.029) ng/mL - Imaging and Cardiology EKG: report reviewed (75/m LVH by voltage criteria) Chest x-ray: report reviewed Imaging and Cardiology: Chest x-ray Small right pleural effusion versus pleural thickening Assessment and Plan Advance Directives: Yes (full code) VTE prophylaxis?: Chemical Plan of care discussed with patient/family: Yes - Patient Problems (1) Hypertensive emergency Current Visit: Yes Status: Acute Plan to address problem: Patient initiated on losartan, hydralazine carvedilol and amlodipine. IV hydralazine 10 mg every 3 hours when necessary for blood pressure more than 160/100 (2) Chest pain Current Visit: Yes Status: Acute Qualifiers: Chest pain type: unspecified Qualified Code(s): R07.9 - Chest pain, unspecified Plan to address problem: Serial troponins and exercise stress test in the morning (3) Nicotine dependence Current Visit: Yes Status: Chronic Qualifiers: Nicotine product type: cigarettes Plan to address problem: Patient counseled about stopping smoking Patient initiated on NicoDerm patch (4) DVT prophylaxis Current Visit: Yes Status: Acute Plan to address problem: On Lovenox and GI prophylaxis
[2018-10-29] MEDS ORDERED: DILAUDID IV PRN (00:33)
[2018-10-29] MEDS ORDERED: ZOFRAN IV PRN (00:33)
[2018-10-29] MEDS ORDERED: TYLENOL PO PRN (00:33)
[2018-10-29] MEDS ORDERED: SODIUM CHLORIDE FLUSH SYRINGE 10 ML IV PRN (00:33)
[2018-10-29] MEDS ORDERED: PERCOCET 5/325 PO PRN (00:33)
[2018-10-29] MEDS: APRESOLINE IV PRN ×2 (00:59→05:08)
[2018-10-29] MEDS: COREG PO SCH ×2 (01:04→12:12)
[2018-10-29] MEDS: APRESOLINE PO SCH ×3 (01:06→13:21)
[2018-10-29] MEDS ORDERED: LEXISCAN IV ONE (09:30)
[2018-10-29] MEDS ORDERED: SODIUM CHLORIDE FLUSH SYRINGE 10 ML IV SCH (10:00)
[2018-10-29] MEDS ORDERED: PROCARDIA XL PO SCH (10:00)
[2018-10-29] MEDS ORDERED: PEPCID PO SCH (10:00)
[2018-10-29] MEDS ORDERED: NORVASC PO SCH (10:00)
[2018-10-29 11:59] VITALS: BP 168/96
[2018-10-29] MEDS: COZAAR PO SCH (12:12)
--- NOTE | 2018-10-29 15:20 | Progress Note ---
Hospitalist Physical - Constitutional Vitals: Temp Pulse Resp BP Pulse Ox 98.0 F 77 18 168/96 92 10/29/18 07:58 10/29/18 05:47 10/29/18 07:58 10/29/18 11:28 10/29/18 04:38 General appearance: Present: no acute distress, well-nourished Results - Labs CBC & Chem 7: 10/28/18 09:29 10/28/18 09:29 Labs: Laboratory Last Values WBC 5.7 K/mm3 (4.5-11.0) 10/28/18 09:29 RBC 5.13 M/mm3 (3.65-5.03) H 10/28/18 09:29 Hgb 15.3 gm/dl (11.8-15.2) H 10/28/18 09:29 Hct 46.3 % (35.5-45.6) H 10/28/18 09:29 MCV 90 fl (84-94) 10/28/18 09:29 MCH 30 pg (28-32) 10/28/18 09:29 MCHC 33 % (32-34) 10/28/18 09:29 RDW 14.6 % (13.2-15.2) 10/28/18 09:29 Plt Count 294 K/mm3 (140-440) 10/28/18 09:29 Add Manual Diff Complete 10/28/18 09:29 Total Counted 100 10/28/18 09:29 Seg Neuts % (Manual) 51.0 % (40.0-70.0) 10/28/18 09:29 1.0 % 10/28/18 09:29 33.0 % (13.4-35.0) 10/28/18 09:29 Reactive Lymphs % (Man) 1.0 % 10/28/18 09:29 10.0 % (0.0-7.3) H 10/28/18 09:29 3.0 % (0.0-4.3) 10/28/18 09:29 1.0 % (0.0-1.8) 10/28/18 09:29 0 % 10/28/18 09:29 0 % 10/28/18 09:29 0 % 10/28/18 09:29 0 % 10/28/18 09:29 Nucleated RBC % Not Reportable 10/28/18 09:29 Seg Neutrophils # Man 2.9 K/mm3 (1.8-7.7) 10/28/18 09:29 Band Neutrophils # 0.1 K/mm3 10/28/18 09:29 1.9 K/mm3 (1.2-5.4) 10/28/18 09:29 Abs React Lymphs (Man) 0.1 K/mm3 10/28/18 09:29 0.6 K/mm3 (0.0-0.8) 10/28/18 09:29 0.2 K/mm3 (0.0-0.4) 10/28/18 09:29 0.1 K/mm3 (0.0-0.1) 10/28/18 09:29 0.0 K/mm3 10/28/18 09:29 0.0 K/mm3 10/28/18 09:29 0.0 K/mm3 10/28/18 09:29 Blast Cells # 0.0 K/mm3 10/28/18 09:29 WBC Morphology Not Reportable 10/28/18 09:29 Hypersegmented Neuts Not Reportable 10/28/18 09:29 Hyposegmented Neuts Not Reportable 10/28/18 09:29 Hypogranular Neuts Not Reportable 10/28/18 09:29 Not Reportable 10/28/18 09:29 Not Reportable 10/28/18 09:29 Not Reportable 10/28/18 09:29 Not Reportable 10/28/18 09:29 Not Reportable 10/28/18 09:29 Not Reportable 10/28/18 09:29 Consistent w auto 10/28/18 09:29 Not Reportable 10/28/18 09:29 Plt Clumps, EDTA Not Reportable 10/28/18 09:29 Not Reportable 10/28/18 09:29 Not Reportable 10/28/18 09:29 Not Reportable 10/28/18 09:29 Plt Morphology Comment Not Reportable 10/28/18 09:29 RBC Morphology Normal 10/28/18 09:29 Dimorphic RBCs Not Reportable 10/28/18 09:29 Not Reportable 10/28/18 09:29 Not Reportable 10/28/18 09:29 Not Reportable 10/28/18 09:29 Not Reportable 10/28/18 09:29 Not Reportable 10/28/18 09:29 Not Reportable 10/28/18 09:29 Not Reportable 10/28/18 09:29 Not Reportable 10/28/18 09:29 Not Reportable 10/28/18 09:29 Not Reportable 10/28/18 09:29 Not Reportable 10/28/18 09:29 Not Reportable 10/28/18 09:29 Not Reportable 10/28/18 09:29 Not Reportable 10/28/18 09:29 Not Reportable 10/28/18 09:29 Not Reportable 10/28/18 09:29 Not Reportable 10/28/18 09:29 Not Reportable 10/28/18 09:29 Not Reportable 10/28/18 09:29 Acanthocytes (Spur) Not Reportable 10/28/18 09:29 Rouleaux Not Reportable 10/28/18 09:29 Not Reportable 10/28/18 09:29 Not Reportable 10/28/18 09:29 Not Reportable 10/28/18 09:29 Not Reportable 10/28/18 09:29 Hem Pathologist Commnt No 10/28/18 09:29 Sodium 140 mmol/L (137-145) 10/28/18 09:29 Potassium 4.8 mmol/L (3.6-5.0) 10/28/18 09:29 Chloride 104.2 mmol/L (98-107) 10/28/18 09:29 Carbon Dioxide 24 mmol/L (22-30) 10/28/18 09:29 17 mmol/L 10/28/18 09:29 BUN 17 mg/dL (9-20) 10/28/18 09:29 1.3 mg/dL (0.8-1.5) 10/28/18 09:29 Estimated GFR > 60 ml/min 10/28/18 09:29 13 % 10/28/18 09:29 Glucose 71 mg/dL (75-100) L 10/28/18 09:29 5.3 % (4-6) 10/29/18 05:42 Calcium 9.1 mg/dL (8.4-10.2) 10/28/18 09:29 < 0.010 ng/mL (0.00-0.029) 10/29/18 05:42 NT-Pro-B Natriuret Pep 845.6 pg/mL (0-900) 10/28/18 09:29 Active Medications - Current Medications Current Medications: Generic Name Dose Route Start Last Admin Trade Name Freq PRN Reason Stop Dose Admin Acetaminophen 650 mg 10/29/18 00:33 Tylenol PO Q4H PRN Pain MILD(1-3)/Fever >100.5/HAYES Amlodipine Besylate 10 mg 10/29/18 10:00 10/29/18 12:12 Norvasc PO 10 mg QDAY ERIN Administration Carvedilol 12.5 mg 10/29/18 01:00 10/29/18 12:12 Coreg PO 12.5 mg BID ERIN Administration Famotidine 20 mg 10/29/18 10:00 10/29/18 12:11 Pepcid PO 20 mg BID ERIN Administration Hydralazine HCl 10 mg 10/28/18 12:55 10/29/18 05:08 Apresoline IV 10 mg Q3HR PRN Administration Sys BP > 160 Hydralazine HCl 50 mg 10/29/18 01:00 10/29/18 13:21 Apresoline PO 50 mg Q8HR ERIN Administration Hydromorphone HCl 0.5 mg 10/29/18 00:33 Dilaudid IV Q3H PRN Pain , Severe (7-10) Losartan Potassium 100 mg 10/28/18 22:00 10/29/18 12:12 Cozaar PO 100 mg Q12HR ERIN Administration Nifedipine 60 mg 10/29/18 10:00 10/29/18 12:12 Procardia Xl PO 60 mg QDAY ERIN Administration Ondansetron HCl 4 mg 10/29/18 00:33 Zofran IV Q8H PRN Nausea And Vomiting Oxycodone/Acetaminophen 1 tab 10/29/18 00:33 Percocet 5/325 PO Q6H PRN Pain, Moderate (4-6) Sodium Chloride 10 ml 10/29/18 10:00 Sodium Chloride Flush Syringe 10 Ml IV BID ERIN Sodium Chloride 10 ml 10/29/18 00:33 Sodium Chloride Flush Syringe 10 Ml IV PRN PRN LINE FLUSH
--- NOTE | 2018-10-29 16:34 | Consultation ---
History of Present Illness Consult date: 10/29/18 Consult reason: chest pain History of present illness: 53 year old AAM presenting with atypical chest pain and uncontrolled blood pressure. Patient does not take any BP meds at home. Troponon are negative and ECG is showing LVH with non-specific ST-T changes. MPI this admissions showing no ischemia but LVEF 31%. Past History Past Medical History: hypertension Past Surgical History: Other (lung surgery) Social history: smoking, alcohol abuse Medications and Allergies Allergies Allergy/AdvReac Type Severity Reaction Status Date / Time No Known Allergies Allergy Unverified 12/01/16 14:42 Home Medications Medication Instructions Recorded Confirmed Last Taken Type amLODIPine [Norvasc] 10 mg PO QDAY #30 tablet 12/05/16 10/28/18 10/27/18 Rx hydrALAZINE [Apresoline TAB] 50 mg PO Q8HR #180 tablet 12/05/16 10/28/18 10/27/18 Rx hydroCHLOROthiazide [HCTZ] 25 mg PO QDAY #30 tablet 12/05/16 10/28/18 10/27/18 Rx Active Meds: Active Medications Acetaminophen (Tylenol) 650 mg PO Q4H PRN PRN Reason: Pain MILD(1-3)/Fever >100.5/HAYES Amlodipine Besylate (Norvasc) 10 mg PO QDAY [facility] Last Admin: 10/29/18 12:12 Dose: 10 mg Documented by: Carvedilol (Coreg) 12.5 mg PO BID [facility] Last Admin: 10/29/18 12:12 Dose: 12.5 mg Documented by: Famotidine (Pepcid) 20 mg PO BID [facility] Last Admin: 10/29/18 12:11 Dose: 20 mg Documented by: Hydralazine HCl (Apresoline) 10 mg IV Q3HR PRN PRN Reason: Sys BP > 160 Last Admin: 10/29/18 05:08 Dose: 10 mg Documented by: Hydralazine HCl (Apresoline) 50 mg PO Q8HR [facility] Last Admin: 10/29/18 13:21 Dose: 50 mg Documented by: Hydromorphone HCl (Dilaudid) 0.5 mg IV Q3H PRN PRN Reason: Pain , Severe (7-10) Losartan Potassium (Cozaar) 100 mg PO Q12HR [facility] Last Admin: 10/29/18 12:12 Dose: 100 mg Documented by: Nifedipine (Procardia Xl) 60 mg PO QDAY ERIN Last Admin: 10/29/18 12:12 Dose: 60 mg Documented by: Ondansetron HCl (Zofran) 4 mg IV Q8H PRN PRN Reason: Nausea And Vomiting Oxycodone/Acetaminophen (Percocet 5/325) 1 tab PO Q6H PRN PRN Reason: Pain, Moderate (4-6) Sodium Chloride (Sodium Chloride Flush Syringe 10 Ml) 10 ml IV BID ERIN Sodium Chloride (Sodium Chloride Flush Syringe 10 Ml) 10 ml IV PRN PRN PRN Reason: LINE FLUSH Review of Systems All systems: negative Physical Examination Vital Signs Temp Pulse Resp BP Pulse Ox 98.7 F 112 H 17 208/124 98 10/28/18 09:24 10/28/18 09:24 10/28/18 09:24 10/28/18 09:24 10/28/18 09:24 General appearance: no acute distress Neck: Positive: neck supple Cardiac: Positive: Reg Rate and Rhythm Lungs: Positive: Normal Exam Neuro: Positive: Grossly Intact Abdomen: Positive: Soft Extremities: Present: normal Results 10/28/18 09:29 10/28/18 09:29 - EKG Interpretation EKG: sinus rhythm EKG interpretations - Telemetry EKG Rhythm: Sinus Rhythm Assessment and Plan Atypical chest pain No ischemia on MPI this admission Uncontrolled systemic hypertension Non-ischemic cardiomyopathy, new onset Likely either hypertensive in origin or due to alcohol use Recommend: Continue coreg and losartan along with other afterload reducing agents for BP control Outpatient follow-up is warranted
--- NOTE | 2018-10-29 22:52 | Treadmill Report ---
INDICATION: Chest pain. ORDERING PHYSICIAN: Winnie Syed MD FINDINGS: There is no scintigraphic evidence of myocardial ischemia. The left ventricular cavity is moderately dilated. The left ventricular ejection fraction is measured at 31%. There is moderate global left ventricular hypokinesis. IMPRESSION: 1. Moderately dilated left ventricle with moderate global left ventricular hypokinesis, ejection fraction measured at 31%. 2. No scintigraphic evidence of myocardial ischemia. 3. Findings are suggestive of underlying nonischemic cardiomyopathy. JOB# [id number] HANNAH/DADA
--- NOTE | 2018-10-31 20:05 | Discharge Summary ---
Providers - Providers Date of Admission: 10/28/18 12:07 Date of discharge: 10/29/18 Attending physician: MAHNAZ CHIU 10/29/18 00:33 Consult to Physician [CONS] Routine Comment: Consulting Provider: MARIANN DHALIWAL Physician Instructions: Reason For Exam: chest pain [facility] Hospital[facility] Condition: Critical Hospital course: 52-year-old with history of hypertension--comes in for chest pain of 4 days' duration. Noncompliant for the last 2 years.Chest pain is retrosternal. Non radiating. Patient went to urgent care and they found his blood pressure to be very high. Patient's chest pressure is better with rest and worsens with exertion. Patient also has shortness of breath on exertion for last 4 days. No radiation. No palpitations. No diaphoresis. Atypical chest pain No ischemia on MPI this admission Uncontrolled systemic hypertension Non-ischemic cardiomyopathy, new onset Likely either hypertensive in origin or due to alcohol use Recommend: Continue coreg and losartan along with other afterload reducing agents for BP control Outpatient follow-up is warranted Disposition: [id number] LEFT AGAINST MED ADVICE Exam - Constitutional Vitals: Temp Pulse Resp BP Pulse Ox 98.0 F 77 18 168/96 92 10/29/18 07:58 10/29/18 05:47 10/29/18 07:58 10/29/18 11:28 10/29/18 04:38 [facility] - 3-5 Days Forms: AMA Form
== END 2018-10-29 16:00 | disposition left against medical advice (07) ==
LOC: ED 09:10 → 4A 12:07
PROVIDERS: ADMIT Internal Medicine; ATTEND Internal Medicine
DX: R07.89 Other chest pain (principal); I16.1 Hypertensive emergency; F17.210 Nicotine dependence, cigarettes, uncomplicated
CPT/HCPCS: 36415; 71046; 78452; 80048; 83036; 83880; 84484; 85007; 85025; 93005; 93010; 93017; 96374; 96375; 96376; 99284; A9502; G0378; J0360; J2785; 71045

== ENCOUNTER 2021-10-14 07:58 | Inpatient (IN) | payer SELFPAY ==
--- NOTE | 2021-10-14 10:13 | Event Note ---
ED Screening Note ED Screening Note: 55-year-old male history of hypertension, presents with shortness of breath x3 months. General: Nontoxic appearing no acute distress Cardiac: Regular rate, normal heart sounds Respiratory: Normal lung sounds bilaterally no use of health care coordinator muscles GI/-normal sounds, nontender no guarding Musculoskeletal-normal inspection full range of motion Neuro-alert oriented x4. In the setting of a significantly high volume and record number of patients presenting to the emergency department and the fact that we have a limited space to see patients we have implemented the provider in triage protocol this allows an expedited initial exam of patients that might otherwise have left without being seen or who would wait longer than usual to be seen by provider. I interviewed the patient and performed a limited physical exam. This patient is a pulled from the waiting room to triage room for an initial assessment of adrenal studies and then returned to the waiting room pending results of the studies. The ultimate final evaluation and disposition may be performed by another provider depending on room and provider availability.
--- NOTE | 2021-10-14 10:19 | XRay Report ---
CHEST 2 VIEWS INDICATION / CLINICAL INFORMATION: sob. COMPARISON: 10/28/2018 FINDINGS: SUPPORT DEVICES: None. HEART / MEDIASTINUM: No significant abnormality. LUNGS / PLEURA: Scattered hazy opacities in bilateral lung bases. Small bilateral pleural effusions. No pneumothorax. ADDITIONAL FINDINGS: No significant additional findings. IMPRESSION: 1. Scattered hazy opacities in bilateral lung bases suggesting multifocal pneumonia. Small bilateral pleural effusions. Signer Name: Rhys Johnson DO Signed: 10/14/2021 10:14 AM Workstation Name: [id number]
[2021-10-14 13:20] LABS: Hematocrit 50.4 % (35.5-45.6); Hemoglobin 16.8 gm/dl (11.8-15.2); Mean Corpuscular HGB Conc 33 % (32-34); Mean Corpuscular Volume 91 fl (84-94); Platelet Count 299 K/mm3 (140-440); Red Blood Count 5.53 M/mm3 (3.65-5.03); Red Cell Distribution Width 14.4 % (13.2-15.2)
[2021-10-14 13:35] LABS: Alanine Aminotransferase 11 units/L (7-56); Albumin 4.7 g/dL (3.9-5); BUN/Creatinine Ratio 12; Blood Urea Nitrogen 19 mg/dL (9-20); Calcium 9.8 mg/dL (8.4-10.2); Hemolysis Index 6
[2021-10-14] MEDS ORDERED: IPRATROPIUM 0.02% NEBU 2.5 ML IH ONE (13:50)
[2021-10-14] MEDS ORDERED: AZITHROMYCIN/NS 500 MG/250 ML 500 MG/250 ML BAG IV ONE (13:50)
[2021-10-14] MEDS ORDERED: ALBUTEROL 2.5 MG/3 ML NEBU IH ONE (13:50)
[2021-10-14] MEDS ORDERED: SODIUM CHLORIDE 0.9% 1000 ML 1,000 ML IV ONE (13:50)
[2021-10-14] MEDS ORDERED: methylPREDNISolone Sod Succinate 125 MG/2 ML INJ IV ONE (13:51)
--- NOTE | 2021-10-14 15:28 | Emergency Department Report ---
ED General Adult HPI - General Chief complaint: Dyspnea/Respdistress Stated complaint: SOB PUI?: No Time Seen by Provider: 10/14/21 13:49 Source: patient Mode of arrival: Ambulatory Limitations: No Limitations - History of Present Illness Initial comments: 55 YO WITH 3 DAY HX SOB. WORSE WITH ACTIVITY. HAS "HARD CHEST PAIN WITH IT." ENDORSES LEGS SWELLING. DENIES CHF- EMR REPORTS EF 30 PT SOB ON EXAM CAN NOT TALK IN COMPLETE SENTENCES INC WOB AND DEC SAT -: Gradual, days(s) Severity scale (0 -10): 0 Associated Symptoms: denies other symptoms, chest pain, shortness of breath, other (LEG SWELLING). denies: confusion, cough, diaphoresis, fever/chills, headaches, loss of appetite, malaise, nausea/vomiting, rash, seizure, syncope, weakness - Related Data Previous Rx's Medication Instructions Recorded Last Taken Type amLODIPine 10 mg PO QDAY #30 tablet 12/05/16 10/27/18 Rx hydrALAZINE [Apresoline TAB] 50 mg PO Q8HR #180 tablet 12/05/16 10/27/18 Rx hydroCHLOROthiazide [HCTZ] 25 mg PO QDAY #30 tablet 12/05/16 10/27/18 Rx Allergies Allergy/AdvReac Type Severity Reaction Status Date / Time No Known Allergies Allergy Verified 10/14/21 10:04 ED Review of Systems ROS: Stated complaint: SOB Other details as noted in HPI Comment: All other systems reviewed and negative ED Past Medical Hx - Past Medical History Previous Medical History?: Yes Hx Hypertension: Yes (Pt. reports, "I was medicated for high blood pressure a lot time ago.") Hx CVA: No Hx Heart Attack/AMI: No Hx Congestive Heart Failure: Yes Hx Diabetes: No Hx Deep Vein Thrombosis: No Hx GERD: No Hx Asthma: No Hx COPD: No (Pt states, "They said I might get it if I keep smoking".) Hx HIV: No - Surgical History Past Surgical History?: Yes Hx Coronary Stent: No Hx Open Heart Surgery: No Hx Pacemaker: No Hx Internal Defibrillator: No Hx Cholecystectomy: No Hx Appendectomy: No Hx Breast Surgery: No Additional Surgical History: right lung surgery for an infection in 2003 X2 BUT CANT TELL ME DETAILS - Family History Family history: no significant - Social History Smoking Status: Current Every Day Smoker Substance Use Type: Alcohol, Marijuana - Medications Home Medications: Home Medications Medication Instructions Recorded Confirmed Last Taken Type amLODIPine 10 mg PO QDAY #30 tablet 12/05/16 10/28/18 10/27/18 Rx hydrALAZINE [Apresoline TAB] 50 mg PO Q8HR #180 tablet 12/05/16 10/28/18 10/27/18 Rx hydroCHLOROthiazide [HCTZ] 25 mg PO QDAY #30 tablet 12/05/16 10/28/18 10/27/18 Rx ED Physical Exam - General Limitations: No Limitations General appearance: alert, in no apparent distress - Head Head exam: Present: atraumatic, normocephalic - Eye Eye exam: Present: normal appearance - ENT ENT exam: Present: mucous membranes moist - Neck Neck exam: Present: normal inspection - Respiratory Respiratory exam: Present: wheezes, rales. Absent: respiratory distress - Cardiovascular Cardiovascular Exam: Present: regular rate, normal rhythm. Absent: systolic murmur, diastolic murmur, rubs, gallop - GI/Abdominal GI/Abdominal exam: Present: soft, normal bowel sounds - Rectal Rectal exam: Present: deferred - Extremities Exam Extremities exam: Present: normal inspection - Back Exam Back exam: Present: normal inspection - Neurological Exam Neurological exam: Present: alert, oriented X3 - Psychiatric Psychiatric exam: Present: normal affect, normal mood - Skin Skin exam: Present: warm, dry, intact, normal color. Absent: rash ED Course Vital Signs 10/14/21 10/14/21 10:01 12:35 Temperature 97.7 F Pulse Rate 92 H Pulse Rate [ 100 H Anterior Bilateral] Respiratory 16 Rate Respiratory 26 H Rate [Anterior Bilateral] Blood Pressure 230/124 [Right] O2 Sat by Pulse 95 Oximetry - Reevaluation(s) Reevaluation #1: 10/14/21 17:50 CHARGE NURSE AWARE OF NEED FOR EKG 10/14/21 17:53 HOME MEDS BP PILL- SMALL PINK WATER PILL AND ONE MORE HE CAN NOT RECALL ED Medical Decision Making - Lab Data Result diagrams: 10/14/21 12:45 10/14/21 17:05 - EKG Data -: EKG Interpreted by Me - Radiology Data Radiology results: report reviewed, image reviewed SEE REPORT - Medical Decision Making Vital Signs 10/14/21 10/14/21 10:01 12:35 Temperature 97.7 F Pulse Rate 92 H Pulse Rate [ 100 H Anterior Bilateral] Respiratory 16 Rate Respiratory 26 H Rate [Anterior Bilateral] Blood Pressure 230/124 [Right] O2 Sat by Pulse 95 Oximetry I WALKED PT TO FT ROOM HE BECAME MORE SOB; INC RR TO 36; SAT ON ROOM AIR 86 GIVEN DUONEB WITH SOME RELIEF IN SOB BUT STILL HARD FOR PT TO TALK IN COMPLETE SENTENCES PLACED ON 3L NC EKG PENDING- DIRECTOR AWARE LABS NOTED XRAY CHEST NOTED CT SCAN RESULTS NOTED COVID PENDING PT GIVEN NS/AZITHROM GIVEN CO FOR URI RECHECK OF BP 200/150- BNP ELEVATED- SOB- GIVEN LASIX 40 IV PT STATES HE HAS NO HF BUT PER EMR REVIEW LAST EF IN 2018 ON STRESS TEST WAS [address] HARRISON PAGEKevin PT UPDATED ON ADMIT STAFFED WITH DR HARRISON ADMIT FOR A/C HF WORK UP THEY WILL FOLLOW 1800 DR YOUNG PHONEKevin AND HE IS BUSY IN A PROCEDURE, HAS MANY AHEAD OF THIS ONE AND WILL FOLLOW BACK. HE ASKED ME SIGN OUT TO [employer] AND HE WILL SEE PT [address] DAY PLAN ADMIT FOR A/C HF WORK UP EVAL EF-BNP INC- TREND TROP/12 LEAD HTN EMERGENCY HYDRAL ORDERED WITH LASIX 40 MG IV MAY NEED DRIP IF HE DOES NOT RESPOND WORSENING CR AVOID NEPHROTOXINS - Differential Diagnosis URI/HTN/ACS/CHF Critical care attestation.: If time is entered above; I have spent that time in minutes in the direct care of this critically ill patient, excluding procedure time. ED Disposition Clinical Impression: Tobacco use, Chest pain, SOB (shortness of breath), Hypertensive emergency, Heart failure, Hypoxia Disposition: ADMITTED INPATIENT Is pt being admited?: Yes Does the pt Need Aspirin: No Condition: Stable Instructions: Nonspecific Chest Pain, Adult, Hypertension (ED) Referrals: PRIMARY CARE, [Primary Care Provider] - 3-5 Days Time of Disposition: 17:53
[2021-10-14] MEDS ORDERED: FUROSEMIDE 40 MG/4 ML INJ IV ONE (16:54)
--- NOTE | 2021-10-14 17:31 | Cat Scan Report ---
CT CHEST WITHOUT CONTRAST INDICATION / CLINICAL INFORMATION: SOB. TECHNIQUE: Axial CT images were obtained through the chest without contrast. All CT scans at this location are p erformed using CT dose reduction for ALARA by means of automated exposure control. COMPARISON: None available. FINDINGS: There is increased density peripherally within the right lower lung with some pleural thickening and calcification. Areas of atelectasis within bilateral lower lungs are identified. Mild coronary artery calcification. No mediastinal or hilar adenopathy. Nonobstructing left renal stone measures 5 mm. No acute bone findings are seen. UPPER ABDOMEN: No significant abnormality. SKELETAL SYSTEM: No significant abnormality. IMPRESSION: 1. Increased density peripherally in the right lower lung with focal area of pleural thickening and c alcification. On axial images this area measures 3.8 x 1.3 cm. A close follow-up CT chest is recommen ded. Some mild atelectasis in bilateral lower lungs noted. 2. Nonobstructing left renal stone. Signer Name: Navjot Johnson MD Signed: 10/14/2021 5:27 PM Workstation Name: [id number]
[2021-10-14 17:36] LABS: BUN/Creatinine Ratio 12; Blood Urea Nitrogen 19 mg/dL (9-20); Calcium 9.2 mg/dL (8.4-10.2); Hemolysis Index 10
[2021-10-14] MEDS ORDERED: hydrALAZINE 20 MG/1 ML INJ IV ONE (17:59)
[2021-10-14] MEDS ORDERED: ALBUTEROL 2.5 MG/3 ML NEBU IH PRN (18:35)
[2021-10-14] MEDS ORDERED: ACETAMINOPHEN 325 MG TAB PO PRN (18:35)
[2021-10-14] MEDS ORDERED: HYDROmorphone 0.5 MG/0.5 ML INJ IV PRN (18:35)
[2021-10-14] MEDS ORDERED: oxyCODONE /ACETAMINOPHEN 5-325MG TAB PO PRN (18:35)
--- NOTE | 2021-10-14 18:35 | History and Physical Report ---
History of Present Illness Chief complaint: Is hard to breathe, and I am swollen History of present illness: 55 YO Male with HTN, Nicotine Dependence, ETOH Dependence, Noncompliance presents ED for evaluation. Patient reports "it is hard to breathe and my chest feels tight". Patient states that he has experienced shortness of breath over the past 1 week with worsening symptoms over the past 4 days. Patient acknow ledges orthopnea, paroxysmal nocturnal dyspnea, decreased exercise tolerance, leg edema, as well as 10 pound subjective weight gain. Patient also acknowledges chest discomfort at the time of evaluation but denies chest pain. Patient acknowledges noncompliance with medication. Patient lost to outpatient medical follow-up. Patient transported to [facility] via private vehicle for further care and evaluation of the aforementioned symptoms. The patient was seen and evaluated in the emergency department. All lab and imaging studies reviewed. Patient found to have a pulse oximetry of 86% on room air with exertion which is consistent with acute hypoxemic respiratory failure. Patient also found to have clinical symptoms consistent with CHF decompensation, as well as accelerated hypertension. Patient admitted to telemetry and initiated on CHF protocol. Cardiology team consulted in ED. Patient denies fever, chills, chest pain, palpitation, adductive cough, skin rash, recent contact, or known exposure to COVID-19. Prior admission on 10/28/2018 reviewed. No medication listed at time of admission for reconciliation. Advanced care planning conducted in ED. Past History Past Medical History: hypertension Past Surgical History: Other (Right lung surgery) Social history: single, smoking, alcohol abuse Family history: hypertension Medications and Allergies Allergies Allergy/AdvReac Type Severity Reaction Status Date / Time No Known Allergies Allergy Verified 10/14/21 10:04 Home Medications Medication Instructions Recorded Confirmed Last Taken Type amLODIPine 10 mg PO QDAY #30 tablet 12/05/16 10/28/18 10/27/18 Rx hydrALAZINE [Apresoline TAB] 50 mg PO Q8HR #180 tablet 12/05/16 10/28/18 10/27/18 Rx hydroCHLOROthiazide [HCTZ] 25 mg PO QDAY #30 tablet 12/05/16 10/28/18 10/27/18 R x Review of Systems Constitutional: weight gain, no weight loss, no fever, no chills Ears, nose, mouth and throat: no ear pain, no tinnitis, no decreased hearing, no nasal congestion, no nasal discharge Cardiovascular: orthopnea, shortness of breath, dyspnea on exertion, paroxysmal nocturnal dyspnea, leg edema, decreased exercise tolerance, no chest pain Respiratory: no cough, no cough with sputum, no excessive sputum, no hemoptysis Gastrointestinal: no abdominal pain, no nausea, no vomiting, no diarrhea Genitourinary Male: no hematuria, no flank pain, no discharge, no urinary frequency, no urinary hesitancy Rectal: no pain, no incontinence, no bleeding Musculoskeletal: no neck stiffness, no neck pain, no shooting arm pain, no arm numbness/tingling, no shooting leg pain Integumentary: no rash, no pruritis, no redness, no sores, no wounds Neurological: no head injury, no paralysis, no parathesias, no seizures, no syncope Psychiatric: no anxiety, no memory loss, no sleep disturbances, no hypersomnia, no change in appetite, no change in libido, no suicidal ideation Endocrine: no cold intolerance, no heat intolerance, no excessive thirst, no polyuria, no nocturia Hematologic/Lymphatic: no easy bruising, no easy bleeding Allergic/Immunologic: no urticaria, no allergic rhinitis, no wheezing Exam - Constitutional Vitals: Temp Pulse Resp BP Pulse Ox 97.7 F 100 H 26 H 230/124 95 10/14/21 10:01 10/14/21 12:35 10/14/21 12:35 10/14/21 10:01 10/14/21 10:01 General appearance: Present: mild distress - EENT Eyes: Present: PERRL ENT: hearing intact, clear oral mucosa - Neck Neck: Present: supple, masses or JVD - Respiratory Respiratory effort: labored, accessory muscle use Respiratory: bilateral: diminished, rales - Cardiovascular Heart Sounds: Present: S1 & S2. Absent: rub, click - Extremities Extremities: pulses symmetrical Extremity abnormal: edema Peripheral Pulses: within normal limits - Abdominal General gastrointestinal: Present: soft, non-tender, non-distended, normal bowel sounds Male genitourinary: Present: normal - Integumentary Integumentary: Present: clear, dry - Musculoskeletal Musculoskeletal: gait normal, strength equal bilaterally - Psychiatric Psychiatric: appropriate mood/affect, intact judgment & insight - Neurologic Neurologic: CNII-XII intact, moves all extremities HEART Score - HEART Score Troponin: Troponin T < 0.010 ng/mL (0.00-0.029) 10/14/21 17:05 Results - Labs CBC & Chem 7: 10/14/21 12:45 10/14/21 17:05 Labs: Abnormal lab results 10/14/21 10/14/21 10/14/21 Range/Units 12:45 12:45 17:05 RBC 5.53 H (3.65-5.03) M/mm3 Hgb 16.8 H (11.8-15.2) gm/dl Hct 50.4 H (35.5-45.6) % Potassium 5.5 H (3.6-5.0) mmol/L Creatinine 1.6 H 1.6 H (0.8-1.3) mg/dL Glucose 104 H 146 H (75-100) mg/dL NT-Pro-B Natriuret Pep 1930 H (0-900) pg/mL Assessment and Plan - Patient Problems (1) Acute hypoxemic respiratory failure Current Visit: Yes Status: Acute Plan to address problem: Chest x-ray, supplemental oxygen, pulse oximetry, nebulizer therapy, noninvasive positive pressure ventilation as clinically indicated. (2) CHF (congestive heart failure) Current Visit: Yes Status: Acute Qualifiers: Heart failure type: systolic Heart failure chronicity: acute Qualified Code(s): I50.21 - Acute systolic (congestive) heart failure Plan to address problem: Strict I's/O, monitoring output every shift, daily weight, afterload reduction, blood pressure control, diuresis, cardiology team consulted, echocardiogram ordered and pending at time of admission, thyroid panel, magnesium level. (3) Accelerated hypertension Current Visit: Yes Status: Acute Plan to address problem: Continue medical management, blood pressure check as per nursing care protocol. (4) Nicotine dependence Current Visit: Yes Status: Acute Qualifiers: Nicotine product type: cigarettes Substance use status: in withdrawal Qualified Code(s): F17.213 - Nicotine dependence, cigarettes, with withdrawal Plan to address problem: Smoke cessation counseling, supportive care, behavior change counseling, +15 minutes. (5) Noncompliance with medication regimen Current Visit: No Status: Acute Plan to address problem: Patient counseled regarding compliance with medication, dietary and fluid restriction, and low sodium diet. Patient acknowledges understanding instructions, +30 minutes. Patient instructed to follow-up with primary care physician for all age and risk factor appropriate screening test. (6) DVT prophylaxis Current Visit: Yes Status: Acute Plan to address problem: SCD to bilateral lower extremities while in bed (7) Advance care planning Current Visit: Yes Status: Acute Plan to address problem: Disease education done, care plan discussed, diagnoses discussed, prognosis discussed, patient is full code. Patient knowledges understanding and agreement with care plan, +30 minutes. (8) Preventative health care Current Visit: Yes Status: Acute Plan to address problem: Patient counseled regarding risk factor reduction, medication compliance, need for outpatient follow-up with primary care physician for all age and risk factor appropriate screening test. +30 minutes.
[2021-10-14 19:58] LABS: Free T4 (Free Thyroxine) 1.36 ng/dL (0.76-1.46)
[2021-10-14 20:11] LABS: Mucus,Urine FEW /HPF
[2021-10-14 20:14] LABS: Color,Urine Yellow (Yellow)
[2021-10-14 20:15] LABS: WBC,Urine < 1.0 /HPF (0.0-6.0)
[2021-10-14] MEDS ORDERED: LORazepam 2 MG/ML VIAL IV PRN (20:42)
[2021-10-14] MEDS: hydrALAZINE 25 MG TAB PO SCH (23:15)
[2021-10-15 05:27] LABS: Calcium 9.5 mg/dL (8.4-10.2)
[2021-10-15] MEDS: FUROSEMIDE 40 MG/4 ML INJ IV SCH ×2 (06:19→18:22)
[2021-10-15] MEDS: hydrALAZINE 25 MG TAB PO SCH ×3 (06:19→21:47)
[2021-10-15] MEDS ORDERED: labetaloL 200 MG in DEXTROSE 5% IN WATER 160 ML IV SCH (09:00)
[2021-10-15] MEDS: METOPROLOL TARTRATE 50 MG TAB PO SCH ×2 (09:14→21:47)
[2021-10-15] MEDS ORDERED: hydroCHLOROthiazide 25 MG TAB PO SCH (10:00)
[2021-10-15] MEDS ORDERED: amLODIPine 10 MG TAB PO SCH (10:00)
[2021-10-15] MEDS: NIFEdipine XL 60 MG TAB PO SCH ×2 (12:25→21:46)
--- NOTE | 2021-10-15 13:06 | Consultation ---
History of Present Illness Consult date: 10/15/21 Consult reason: hypertension (Uncontrolled hypertension) History of present illness: Patient is a 55-year-old man with long history of hypertension, moderate severity nonischemic cardiomyopathy. In October 2018, a thallium stress test was negative for ischemia, with an ejection fraction of 31%. Recently, the patient stopped taking his antihypertensive medical therapy, has been off his medications for 3 months. He presents to the emergency room now with shortness of breath, and on presentation with systolic blood pressure was 230. There is no chest pain, no palpitations, no edema and no syncope. EKG was sinus rhythm with left ventricle hypertrophy and repolarization abnormalities of LVH. Chest x-ray revealed mild cardiomegaly, with scattered hazy opacities in both lung berrios, no interstitial edema or heart failure. Echocardiogram on this presentation shows moderate severity left ventricular dysfunction, ejection fraction 30 to 35%, moderate concentric left ventricle hypertrophy. Past History Past Medical History: hypertension Past Surgical History: Other (Right lung surgery) Social history: single, smoking, alcohol abuse Family history: hypertension Medications and Allergies Allergies Allergy/AdvReac Type Severity Reaction Status Date / Time No Known Allergies Allergy Verified 10/14/21 10:04 Home Medications Medication Instructions Recorded Confirmed Last Taken Type Felodipine [Felodipine ER] 10 mg PO QDAY #90 tab 10/16/21 Unknown Rx Furosemide [Lasix] 40 mg PO QDAY #90 tab 10/16/21 Unknown Rx Metoprolol [Lopressor TAB] 50 mg PO BID #90 tablet 10/16/21 Unknown Rx hydrALAZINE [Apresoline TAB] 50 mg PO Q8HR #90 tablet 10/16/21 Unknown Rx Active Meds: Active Medications Acetaminophen (Acetaminophen 325 Mg Tab) 650 mg PO Q6H PRN PRN Reason: Pain MILD(1-3)/Fever >100.5/HAYES Albuterol (Albuterol 2.5 Mg/3 Ml Nebu) 2.5 mg IH Q3HRT PRN PRN Reason: Shortness Of Breath Furosemide (Furosemide 40 Mg/4 Ml Inj) 40 mg IV BID@0600,1800 [facility] Last Admin: 10/15/21 06:19 Dose: 40 mg Hydralazine HCl (Hydralazine 25 Mg Tab) 50 mg PO Q8HR [facility] Last Admin: 10/15/21 06:19 Dose: 50 mg Hydromorphone HCl (Hydromorphone 0.5 Mg/0.5 Ml Inj) 0.5 mg IV Q23H PRN PRN Reason: Pain , Severe (7-10) Labetalol HCl 200 mg/ Dextrose 200 mls @ 120 mls/hr IV TITR ERIN; Protocol Lorazepam (Lorazepam 2 Mg/Ml Vial) 2 mg IV Q1HR PRN PRN Reason: CIWA-Ar 8-15 Metoprolol Tartrate (Metoprolol Tartrate 50 Mg Tab) 50 mg PO BID [facility] Last Admin: 10/15/21 09:14 Dose: 50 mg Nifedipine (Nifedipine Xl 60 Mg Tab) 60 mg PO Q12HR [facility] Last Admin: 10/15/21 12:25 Dose: 60 mg Oxycodone/Acetaminophen (Oxycodone /Acetaminophen 5-325mg Tab) 1 tab PO Q16H PRN PRN Reason: Pain, Moderate (4-6) Sodium Chloride (Sodium Chloride 0.9% 10 Ml Flush Syringe) 10 ml IV BID [facility] Last Admin: 10/15/21 12:27 Dose: 10 ml Sodium Chloride (Sodium Chloride 0.9% 10 Ml Flush Syringe) 10 ml IV PRN PRN PRN Reason: LINE FLUSH Review of Systems Cardiovascular: shortness of breath, no chest pain, no orthopnea, no palpitations, no rapid/irregular heart beat, no edema, no syncope, no lightheadedness Physical Examination Vital Signs Temp Pulse Resp BP Pulse Ox 97.7 F 92 H 16 230/124 95 10/14/21 10:01 10/14/21 10:01 10/14/21 10:01 10/14/21 10:01 10/14/21 10:01 General appearance: no acute distress HEENT: Positive: PERRL Neck: Positive: neck supple Cardiac: Positive: Reg Rate and Rhythm Lungs: Positive: Decreased Breath Sounds Neuro: Positive: Grossly Intact Abdomen: Positive: Soft Male genitourinary: Positive: deferred Skin: Positive: Clear Extremities: Absent: edema Results 10/16/21 04:53 10/16/21 04:53 Cardiac Enzymes 10/14/21 Range/Units 12:45 AST 16 (5-40) units/L CBC 10/14/21 Range/Units 12:45 WBC 7.4 (4.5-11.0) K/mm3 RBC 5.53 H (3.65-5.03) M/mm3 Hgb 16.8 H (11.8-15.2) gm/dl Hct 50.4 H (35.5-45.6) % Plt Count 299 (140-440) K/mm3 Comprehensive Metabolic Panel 10/14/21 10/14/21 10/15/21 Range/Units 12:45 17:05 04:41 Sodium 140 138 138 (137-145) mmol/L Potassium 5.5 H 4.4 4.8 (3.6-5.0) mmol/L Chloride 103.5 101.1 101.5 (98-107) mmol/L Carbon Dioxide 26 26 26 (22-30) mmol/L BUN 19 19 19 (9-20) mg/dL Creatinine 1.6 H 1.6 H 1.6 H (0.8-1.3) mg/dL Glucose 104 H 146 H 144 H (75-100) mg/dL Calcium 9.8 9.2 9.5 (8.4-10.2) mg/dL AST 16 (5-40) units/L ALT 11 (7-56) units/L Alkaline Phosphatase 87 (35-129) units/L Total Protein 7.4 (6.3-8.2) g/dL Albumin 4.7 (3.9-5) g/dL EKG interpretations - Telemetry EKG Rhythm: Sinus Rhythm (With left ventricle hypertrophy and repolarization abnormalities of LVH) Assessment and Plan - Patient Problems (1) Uncontrolled hypertension Current Visit: Yes Status: Acute Plan to address problem: 55-year-old man history of longstanding hypertension, and moderate severity nonischemic cardiomyopathy, presents with uncontrolled hypertension due to noncompliance with his antihypertensive therapy for several months. Recommend restart of optimal antihypertensive therapy, with social security specialist consultation and intervention, to assist the patient with strategies for procuring outpatient medications and doctor follow-up visits.
--- NOTE | 2021-10-15 13:18 | Electrocardiograph Report ---
[facility] Test Date: 2021-10-14 Test Time: 19:50:04 Pat Name: SAM MATAMOROS Department: Room: A264 Gender: M [employer] Tax Auditor: [id number] : 1965 Requested By: PAULETTE DYKES Order Number: [id number] Reading MD: Sarai Murillo Measurements Intervals [place] Rate: 92 P: 66 GA: 165 QRS: 68 QRSD: 112 T: 73 QT: 396 QTc: 492 Interpretive Statements Sinus rhythm Left atrial enlargement Left ventricle hypertrophy with repolarization abnormalities of LV No previous ECG available for comparison Electronically Signed On 10-15-2021 13:18:31 EDT by Sarai Murillo
--- NOTE | 2021-10-15 13:42 | Progress Note ---
Assessment and Plan Assessment and plan: 55 YO Male with HTN, Nicotine Dependence, ETOH Dependence, Noncompliance presents ED for evaluation. Patient reports "it is hard to breathe and my chest feels tight". Patient states that he has experienced shortness of breath over the past 1 week with worsening symptoms over the past 4 days. Patient a cknowledges orthopnea, paroxysmal nocturnal dyspnea, decreased exercise tolerance, leg edema, as well as 10 pound subjective weight gain. Patient also acknowledges chest discomfort at the time of evaluation but denies chest pain. Patient acknowledges noncompliance with medication. Patient lost to outpatient medical follow-up. Patient transported to [facility] via private vehicle for further care and evaluation of the aforementioned symptoms. The patient was seen and evaluated in the emergency department. All lab and imaging studies reviewed. Patient found to have a pulse oximetry of 86% on room air with exertion which is consistent with acute hypoxemic respiratory failure. Patient also found to have clinical symptoms consistent with CHF decompensation, as well as accelerated hypertension. Patient admitted to telemetry and initiated on CHF protocol. Cardiology team consulted in ED. Patient denies fever, chills, chest pain, palpitation, adductive cough, skin rash, recent contact, or known exposure to COVID-19. Prior admission on 10/28/2018 reviewed. No medication listed at time of admission for reconciliation. Advanced care planning conducted in ED. Past History Past Medical History: hypertension Past Surgical History: Other (Right lung surgery) Social history: single, smoking, alcohol abuse Family history: hypertension 10/15: Mr. Leos was seen this morning clinically improving but blood pressure remains remarkably high. He states that he ran out of his medications about a month ago and due to insurance reasons has not followed up. Despite starting h im on Lasix and also on Procardia blood pressure has not improved. He denies any headache or blurry vision. We will initiate labetalol drip. Cardiology has been consulted we will consult janitor helper and transfer to the ICU for closer monitoring. I have discussed with the patient extensively he verbalized understand that while he continues to use alcohol he states that he has never gone through withdrawal symptoms. He states that he quit tobacco use about 6 months ago. I have also consulted nephrology due to acute kidney injury. (1) Acute hypoxemic respiratory failure Current Visit: Yes Status: Acute Plan to address problem: Chest x-ray, supplemental oxygen, pulse oximetry, nebulizer therapy, noninvasive positive pressure ventilation as clinically indicated. (2) CHF (congestive heart failure) Current Visit: Yes Status: Acute Qualifiers: Heart failure type: systolic Heart failure chronicity: acute Qualified Code(s): I50.21 - Acute systolic (congestive) heart failure Plan to address problem: Strict I's/O, monitoring output every shift, daily weight, afterload reduction, blood pressure control, diuresis, cardiology team consulted, echocardiogram ordered and pending at time of admission, thyroid panel, magnesium level. (3) Accelerated hypertension Current Visit: Yes Status: Acute Plan to address problem: Continue medical management, blood pressure check as per nursing care protocol. (4) Nicotine dependence Current Visit: Yes Status: Acute Qualifiers: Nicotine product type: cigarettes Substance use status: in withdrawal Qualified Code(s): F17.213 - Nicotine dependence, cigarettes, with withdrawal Plan to address problem: Smoke cessation counseling, supportive care, behavior change counseling, +15 min utes. (5) Noncompliance with medication regimen Current Visit: No Status: Acute Plan to address problem: Patient counseled regarding compliance with medication, dietary and fluid restriction, and low sodium diet. Patient acknowledges understanding instructions, +30 minutes. Patient instructed to follow-up with primary care physician for all age and risk factor appropriate screening test. (6) FRANDY- Vasomotor Nephropathy (7) DVT prophylaxis Current Visit: Yes Status: Acute Plan to address problem: SCD to bilateral lower extremities while in bed (8) Advance care planning Current Visit: Yes Status: Acute Plan to address problem: Disease education done, care plan discussed, diagnoses discussed, prognosis discussed, patient is full code. Patient knowledges understanding and agreement with care plan, +30 minutes. (9) Preventative health care Current Visit: Yes Status: Acute Plan to address problem: Patient counseled regarding risk factor reduction, medication compliance, need for outpatient follow-up with primary care physician for all age and risk factor appropriate screening test. +30 minutes. The high probability of a clinically significant, sudden or life threatening deterioration of the [renal, cardiac] system(s) required my full and direct attention, intervention and personal management. The aggregate critical care time was [60] minutes. This time is in addition to time spent performing reported procedures but includes the following: [X] Data Review and interpretation [X] Patient assessment and monitoring of vital signs [X] Documentation [X] Medication orders and management History Interval history: Patient seen and examined, no new complaints. Hospitalist Physical - Physical exam Narrative exam: VITAL SIGNS: Reviewed. GENERAL: The patient appears normally developed, Vital signs as documented. HEAD: No signs of head trauma. EYES: Pupils are equal. Extraocular motions intact. EARS: Hearing grossly intact. MOUTH: Oropharynx is normal. NECK: No adenopathy, no JVD. CHEST: Chest with clear breath sounds bilaterally. No wheezes, rales, or rh onchi. CARDIAC: Regular rate and rhythm. S1 and S2, without murmurs, gallops, or rubs. VASCULAR: No Edema. Peripheral pulses normal and equal in all extremities. ABDOMEN: Soft, non tender and non distended. No rebound or guarding, and no masses palpated. Bowel Sounds normal. MUSCULOSKELETAL: Good range of motion of all major joints. Extremities without clubbing, cyanosis or edema. NEUROLOGIC EXAM: Alert and oriented x 3 No focal sensory or strength deficits. Speech normal. Follows commands. PSYCHIATRIC: Mood normal. SKIN: detail exam as documented in skin assessment - Constitutional Vitals: Temp Pulse Resp BP Pulse Ox 98.3 F 96 H 18 196/124 99 10/15/21 11:33 10/15/21 12:25 10/15/21 11:33 10/15/21 12:25 10/15/21 11:33 General appearance: Present: mild distress HEART Score - HEART Score Troponin: Troponin T < 0.010 ng/mL (0.00-0.029) 10/14/21 17:05 Results - Labs CBC & Chem 7: 10/14/21 12:45 10/15/21 04:41 Labs: Laboratory Last Values WBC 7.4 K/mm3 (4.5-11.0) 10/14/21 12:45 RBC 5.53 M/mm3 (3.65-5.03) H 10/14/21 12:45 Hgb 16.8 gm/dl (11.8-15.2) H 10/14/21 12:45 Hct 50.4 % (35.5-45.6) H 10/14/21 12:45 MCV 91 fl (84-94) 10/14/21 12:45 MCH 31 pg (28-32) 10/14/21 12:45 MCHC 33 % (32-34) 10/14/21 12:45 RDW 14.4 % (13.2-15.2) 10/14/21 12:45 Plt Count 299 K/mm3 (140-440) 10/14/21 12:45 Sodium 138 mmol/L (137-145) 10/15/21 04:41 Potassium 4.8 mmol/L (3.6-5.0) 10/15/21 04:41 Chloride 101.5 mmol/L (98-107) 10/15/21 04:41 Carbon Dioxide 26 mmol/L (22-30) 10/15/21 04:41 Anion Gap 15 mmol/L 10/15/21 04:41 BUN 19 mg/dL (9-20) 10/15/21 04:41 Creatinine 1.6 mg/dL (0.8-1.3) H 10/15/21 04:41 Estimated GFR 54 ml/min 10/15/21 04:41 BUN/Creatinine Ratio 12 % 10/15/21 04:41 Glucose 144 mg/dL (75-100) H 10/15/21 04:41 Calcium 9.5 mg/dL (8.4-10.2) 10/15/21 04:41 Phosphorus 2.80 mg/dL (2.5-4.5) 10/14/21 17:05 Magnesium 1.70 mg/dL (1.7-2.3) 10/14/21 19:03 Total Bilirubin 0.90 mg/dL (0.1-1.2) 10/14/21 12:45 AST 16 units/L (5-40) 10/14/21 12:45 ALT 11 units/L (7-56) 10/14/21 12:45 Alkaline Phosphatase 87 units/L (35-129) 10/14/21 12:45 Troponin T < 0.010 ng/mL (0.00-0.029) 10/14/21 17:05 NT-Pro-B Natriuret Pep 1930 pg/mL (0-900) H 10/14/21 17:05 Total Protein 7.4 g/dL (6.3-8.2) 10/14/21 12:45 Albumin 4.7 g/dL (3.9-5) 10/14/21 12:45 Albumin/Globulin Ratio 1.7 % 10/14/21 12:45 TSH 0.781 mlU/mL (0.270-4.200) 10/14/21 19:03 Free T4 1.36 ng/dL (0.76-1.46) 10/14/21 19:03 Urine Color Yellow (Yellow) 10/14/21 19:42 Urine Turbidity Clear (Clear) 10/14/21 19:42 Specific [place] (Man) 1.010 (1.003-1.030) 10/14/21 19:42 Ur Protein (Man) 1+ mg/dL (Negative) 10/14/21 19:42 Ur Ketones (Man) Negative (Negative) 10/14/21 19:42 Ur Nitrite (Man) Negative (Negative) 10/14/21 19:42 Ur Reducing Substances Not Reportable 10/14/21 19:42 Urine Bilirubin (Man) Negative (Negative) 10/14/21 19:42 Urine Ictotest Not Reportable 10/14/21 19:42 Leukocyte Esterase (Man) Negative (Negative) 10/14/21 19:42 Urine WBC (Auto) < 1.0 /HPF (0.0-6.0) 10/14/21 19:42 Urine RBC (Auto) 1.0 /HPF (0.0-6.0) 10/14/21 19:42 U Epithel Cells (Auto) < 1.0 /HPF (0-13.0) 10/14/21 19:42 Urine RBC (Manual) Trace (Negative) 10/14/21 19:42 Urine Mucus Few /HPF 10/14/21 19:42 Active Medications - Current Medications Current Medications: Generic Name Dose Route Start Last Admin Trade Name Freq PRN Reason Stop Dose Admin Acetaminophen 650 mg 10/14/21 18:35 Acetaminophen 325 Mg Tab PO Q6H PRN Pain MILD(1-3)/Fever >100.5/HAYES Albuterol 2.5 mg 10/14/21 18:35 Albuterol 2.5 Mg/3 Ml Nebu IH Q3HRT PRN Shortness Of Breath Furosemide 40 mg 10/15/21 06:00 10/15/21 06:19 Furosemide 40 Mg/4 Ml Inj IV 40 mg BID@0600,1800 ERIN Administration Hydralazine HCl 50 mg 10/14/21 22:00 10/15/21 13:18 Hydralazine 25 Mg Tab PO Not Given Q8HR ERIN Hydromorphone HCl 0.5 mg 10/14/21 18:35 Hydromorphone 0.5 Mg/0.5 Ml Inj IV Q23H PRN Pain , Severe (7-10) Labetalol HCl 200 mg/ Dextrose 200 mls @ 120 mls/hr 10/15/21 09:00 IV TITR ERIN Protocol 2 MG/MIN Lorazepam 2 mg 10/14/21 20:42 Lorazepam 2 Mg/Ml Vial IV Q1HR PRN CIWA-Ar 8-15 Metoprolol Tartrate 50 mg 10/15/21 09:00 10/15/21 09:14 Metoprolol Tartrate 50 Mg Tab PO 50 mg BID ERIN Administration Nifedipine 60 mg 10/15/21 10:00 10/15/21 12:25 Nifedipine Xl 60 Mg Tab PO 60 mg Q12HR ERIN Administration Oxycodone/Acetaminophen 1 tab 10/14/21 18:35 Oxycodone /Acetaminophen 5-325mg Tab PO Q16H PRN Pain, Moderate (4-6) Sodium Chloride 10 ml 10/14/21 22:00 10/15/21 12:27 Sodium Chloride 0.9% 10 Ml Flush Syringe IV 10 ml BID ERIN Administration Sodium Chloride 10 ml 10/14/21 18:35 Sodium Chloride 0.9% 10 Ml Flush Syringe IV PRN PRN LINE FLUSH
--- NOTE | 2021-10-15 15:49 | Consultation ---
History of Present Illness Consult date: 10/15/21 Requesting physician: SHOSHANA DIXON Reason for consult: other (Hypertensive urgency) History of present illness: 55 YO Male with HTN, Nicotine Dependence, ETOH Dependence, Noncompliance presents ED for evaluation. Patient reports "it is hard to breathe and my chest feels tight". Patient states that he has experienced shortness of breath over the past 1 week with worsening symptoms over the past 4 days. Patient ack nowledges orthopnea, paroxysmal nocturnal dyspnea, decreased exercise tolerance, leg edema, as well as 10 pound subjective weight gain. Patient also acknowledges chest discomfort at the time of evaluation but denies chest pain. Patient acknowledges noncompliance with medication. Patient lost to outpatient medical follow-up. Patient transported to [facility] via private vehicle for further care and evaluation of the aforementioned symptoms. The patient was seen and evaluated in the emergency department. All lab and imaging studies reviewed. Patient found to have a pulse oximetry of 86% on room air with exertion which is consistent with acute hypoxemic respiratory failure. Patient also found to have clinical symptoms consistent with CHF decompensation, as well as accelerated hypertension. Patient admitted to telemetry and initiated on CHF protocol. Cardiology team consulted in ED by hospitalist group. Patient denies fever, chills, chest pain, palpitation, adductive cough, skin ra sh, recent contact, or known exposure to COVID-19. Patient was admitted to the IMCU This morning his blood pressure was elevated requiring Labetalol. He was been transferred to the ICU for the management of critical drips. Past History Past Medical History: hypertension Past Surgical History: Other (Right lung surgery) Social history: single, smoking, alcohol abuse Family history: hypertension Medications and Allergies Allergies Allergy/AdvReac Type Severity Reaction Status Date / Time No Known Allergies Allergy Verified 10/14/21 10:04 Home Medications Medication Instructions Recorded Confirmed Last Taken Type Felodipine [Felodipine ER] 10 mg PO QDAY #90 tab 10/16/21 Unknown Rx Furosemide [Lasix] 40 mg PO QDAY #90 tab 10/16/21 Unknown Rx Metoprolol [Lopressor TAB] 50 mg PO BID #90 tablet 10/16/21 Unknown Rx hydrALAZINE [Apresoline TAB] 50 mg PO Q8HR #90 tablet 10/16/21 Unknown Rx Active Meds: Active Medications Acetaminophen (Acetaminophen 325 Mg Tab) 650 mg PO Q6H PRN PRN Reason: Pain MILD(1-3)/Fever >100.5/HAYES Albuterol (Albuterol 2.5 Mg/3 Ml Nebu) 2.5 mg IH Q3HRT PRN PRN Reason: Shortness Of Breath Furosemide (Furosemide 40 Mg/4 Ml Inj) 40 mg IV BID@0600,1800 [facility] Last Admin: 10/15/21 06:19 Dose: 40 mg Hydralazine HCl (Hydralazine 25 Mg Tab) 50 mg PO Q8HR [facility] Last Admin: 10/15/21 13:18 Dose: Not Given Hydromorphone HCl (Hydromorphone 0.5 Mg/0.5 Ml Inj) 0.5 mg IV Q23H PRN PRN Reason: Pain , Severe (7-10) Labetalol HCl 200 mg/ Dextrose 200 mls @ 120 mls/hr IV TITR [facility]; Protocol Last Admin: 10/15/21 14:27 Dose: 2 mg/min, 120 mls/hr Lorazepam (Lorazepam 2 Mg/Ml Vial) 2 mg IV Q1HR PRN PRN Reason: CIWA-Ar 8-15 Metoprolol Tartrate (Metoprolol Tartrate 50 Mg Tab) 50 mg PO BID [facility] Last Admin: 10/15/21 09:14 Dose: 50 mg Nifedipine (Nifedipine Xl 60 Mg Tab) 60 mg PO Q12HR [facility] Last Admin: 10/15/21 12:25 Dose: 60 mg Oxycodone/Acetaminophen (Oxycodone /Acetaminophen 5-325mg Tab) 1 tab PO Q16H PRN PRN Reason: Pain, Moderate (4-6) Sodium Chloride (Sodium Chloride 0.9% 10 Ml Flush Syringe) 10 ml IV BID [facility] Last Admin: 10/15/21 12:27 Dose: 10 ml Sodium Chloride (Sodium Chloride 0.9% 10 Ml Flush Syringe) 10 ml IV PRN PRN PRN Reason: LINE FLUSH Review of Systems Constitutional: no weight loss, no weight gain, no fever, no chills, no night sweats Cardiovascular: no chest pain, no orthopnea, no palpitations, no edema, no sy ncope, no shortness of breath Respiratory: no cough, no hemoptysis, no shortness of breath, no dyspnea on exertion Gastrointestinal: no abdominal pain, no nausea, no vomiting, no diarrhea Neurological: no head injury, no paralysis, no weakness, no parathesias, no seizures Psychiatric: no anxiety, no memory loss, no sleep disturbances, no insomnia Physical Examination Vital signs: Vital Signs Temp Pulse Resp BP Pulse Ox 97.7 F 92 H 16 230/124 95 10/14/21 10:01 10/14/21 10:01 10/14/21 10:01 10/14/21 10:01 10/14/21 10:01 VITAL SIGNS: Reviewed. GENERAL: The patient appears normally developed HEAD: No signs of head trauma. EYES: Pupils are equal. Extraocular motions intact. EARS: Hearing grossly intact. MOUTH: Oropharynx is normal. NECK: No adenopathy, no JVD. CHEST: Chest with clear breath sounds bilaterally. No wheezes, rales, or rhonchi. CARDIAC: Regular rate and rhythm. S1 and S2, without murmurs, gallops, or rubs. VASCULAR: No Edema. Peripheral pulses normal and equal in all extremities. ABDOMEN: Soft, non tender and non distended. No rebound or guarding, and no masses palpated. Bowel Sounds normal. MUSCULOSKELETAL: Good range of motion of all major joints. Extremities without clubbing, cyanosis or edema. NEUROLOGIC EXAM: Alert and oriented x 3 No focal sensory or strength deficits. Speech normal. Follows commands. PSYCHIATRIC: Mood normal. SKIN: detail exam as documented in skin assessment Results - Laboratory Findings CBC and BMP: 10/16/21 04:53 10/16/21 04:53 Abnormal lab findings: Abnormal Labs 10/14/21 10/14/21 10/14/21 12:45 12:45 17:05 RBC 5.53 H Hgb 16.8 H Hct 50.4 H Potassium 5.5 H Creatinine 1.6 H 1.6 H Glucose 104 H 146 H NT-Pro-B Natriuret Pep 1930 H 10/15/21 04:41 RBC Hgb Hct Potassium Creatinine 1.6 H Glucose 144 H NT-Pro-B Natriuret Pep - Diagnostic Findings Chest x-ray: image reviewed Assessment and Plan Acute hypoxemic resp failure- resolved Accelerated HTN/Hypertensive urgency CHF (congestive heart failure) Tobacco use disorder/Nicotine dependence FRANDY-Vasomotor nephropathy Noncompliance with medication regimen Titrate labetalol, keep SBP<150 Strict intake/output, monitoring output every shift, daily weight, afterload reduction, blood pressure control, diuresis Echocardiogram ordered and pending at time of admission, thyroid panel, magnesium level. Continue medical management, blood pressure check as per nursing care protocol. Smoking cessation counseling, supportive care, behavior change counseling, +8 minutes. Patient counseled regarding compliance with medication, dietary and fluid restriction, and low sodium diet. VTE prophylaxis Follow up surface echocardiogram report The high probability of a clinically significant, sudden or life threatening deterioration of the [renal, cardiac] system(s) required my full and direct attention, intervention and personal management. The aggregate critical care time was [32 ] minutes. This time is in addition to time spent performing reported procedures but includes the following: [X] Data Review and interpretation [X] Patient assessment and monitoring of vital signs [X] Documentation [X] Medication orders and management
[2021-10-16 05:48] LABS: Hematocrit 49.9 % (35.5-45.6); Hemoglobin 16.4 gm/dl (11.8-15.2); Mean Corpuscular HGB Conc 33 % (32-34); Mean Corpuscular Volume 91 fl (84-94); Platelet Count 265 K/mm3 (140-440); Red Blood Count 5.51 M/mm3 (3.65-5.03); Red Cell Distribution Width 14.3 % (13.2-15.2)
[2021-10-16] MEDS: hydrALAZINE 25 MG TAB PO SCH ×2 (05:58→14:45)
[2021-10-16] MEDS: FUROSEMIDE 40 MG/4 ML INJ IV SCH (05:58)
[2021-10-16 06:24] LABS: Calcium 9.3 mg/dL (8.4-10.2)
--- NOTE | 2021-10-16 09:29 | Consultation ---
History of Present Illness - History of Present Illness Thank you for the consultation ! Patient was evaluated today, My assessment and plan are as follows #Renal failure in a patient who has multiple risk factors for underlying chronic kidney disease and its progression over time, remotely in 2019 his creatinine was 1.3 current creatinine has been around 1.5-1.6, will need close monitoring of renal function, #Generalized swelling and edema, urinalysis shows only 1+ protein we will check protein creatinine ratio, certainly would not use nifedipine for now cautious diuresis, Patient most likely may have secondary hypertension #Accelerated hypertension, in the setting of volume overload, patient volume needs to be optimized diuresis on a daily basis till euvolemia is achieved #Erythrocytosis/polycythemia? Underlying sleep apnea to be ruled out rule out other causes, Hemoglobin noted to be elevated at 16.4 and 16.8 #Hyperkalemia mild currently has improved remarkably, #Volume overload with some features of congestive heart failure, Echocardiogram shows dilated left ventricle ejection fraction 30-35% concentric LVH, mild tricuspid regurgitation and pulmonary hypertension RSVP was 38 Patient will be to follow-up on the echocardiogram and hopefully should improve with control of blood pressure as well as correction of volume overload and hypertension Would not initiate any form of MILY or ARB for now consider diuresis as well as beta-angeles work-up for cardiomyopathy Consider sleep study at a later date Long-term renal prognosis on this patient is guarded as patient does have multiple risk factors for underlying chronic kidney disease and progression at this time goal will be to optimize his blood pressure, volume status, diet lifestyle changes, geriatric social worker to follow-up on the medication consider using all generic drugs for this patient with possibly good Rx, so that he can afford the medicine, he will need close follow-up on his cardiac as well as renal status in the outpatient setting If you have any question in regards to this patient renal care please feel free to contact me at [phone] Author: Pradip Cardona M.D. [facility], [address] [place] [address] Tel; [phone] [employer] History of present illness Patient is a 55-year-old male who has been admitted here with difficulty breathing and generalized swelling, does have history of chronic alcohol as well as tobacco abuse along with hypertension, even to this hospitalization have been noted, patient has been noted to have decompensated congestive heart failure also was hypoxemic upon arrival, blood pressure was in the 230 range, creatinine was noted to be around 1.6 with a hemoglobin of 16.8, mild hyperkalemia potassium 5.5, currently being treated for acute hypoxemic variety of respiratory failure congestive heart failure accelerated hypertension as well as medical noncompliance, Cardiology consultation has been obtained ejection fraction in the range of 25 to 30% with concentric LVH and pulmonary hypertension and tricuspid regurg patient was also out of his medications Current creatinine is around 1.5 potassium 4.5 which upon admission was 5.5 pro BNP was elevated at 1930, urinalysis shows 1+ protein but no blood cells, COVID- 19 testing negative hemoglobin was 16.4 Past medical history: Hypertension Tobacco abuse Medical noncompliance Alcohol abuse Current allergies: Reviewed from the current chart Social history: Reviewed from the current chart Family history: Reviewed from the current chart Review of system: Positive for shortness of breath difficulty breathing generalized swelling All other review of systems negative Physical examination Vitals: Reviewed General: No acute distress HEENT: Oral mucosa moist no pallor or icterus Neck: Supple without any JVD thyromegaly or nodular mass Chest: Bilateral crackles Heart: Regular rate and rhythm S1-S2 heard no S3-S4 Abdomen: Soft nontender, bowel sounds present no renal bruit no suprapubic masses no CVA tenderness noted Extremity: 1-2+ edema dry skin no peripheral cyanosis Endocrine: Thyroid not enlarged Psychiatric: No agitation and aggression noted Musculoskeletal: No joint effusion noted Labs and x-rays: Reviewed from this admission Past History Past Medical History: hypertension Past Surgical History: Other (Right lung surgery) Social history: single, smoking, alcohol abuse Family history: hypertension Medications and Allergies Allergies Allergy/AdvReac Type Severity Reaction Status Date / Time No Known Allergies Allergy Verified 10/14/21 10:04 Home Medications Medication Instructions Recorded Confirmed Last Taken Type amLODIPine 10 mg PO QDAY #30 tablet 12/05/16 10/28/18 10/27/18 Rx hydrALAZINE [Apresoline TAB] 50 mg PO Q8HR #180 tablet 12/05/16 10/28/18 10/27/18 Rx hydroCHLOROthiazide [HCTZ] 25 mg PO QDAY #30 tablet 12/05/16 10/28/18 10/27/18 Rx Active Meds: Active Medications Acetaminophen (Acetaminophen 325 Mg Tab) 650 mg PO Q6H PRN PRN Reason: Pain MILD(1-3)/Fever >100.5/HAYES Albuterol (Albuterol 2.5 Mg/3 Ml Nebu) 2.5 mg IH Q3HRT PRN PRN Reason: Shortness Of Breath Furosemide (Furosemide 40 Mg/4 Ml Inj) 40 mg IV BID@0600,1800 [facility] Last Admin: 10/16/21 05:58 Dose: 40 mg Hydralazine HCl (Hydralazine 25 Mg Tab) 50 mg PO Q8HR [facility] Last Admin: 10/16/21 05:58 Dose: 50 mg Hydromorphone HCl (Hydromorphone 0.5 Mg/0.5 Ml Inj) 0.5 mg IV Q23H PRN PRN Reason: Pain , Severe (7-10) Labetalol HCl 200 mg/ Dextrose 200 mls @ 120 mls/hr IV TITR [facility]; Protocol Last Titration: 10/15/21 16:30 Dose: Infused Lorazepam (Lorazepam 2 Mg/Ml Vial) 2 mg IV Q1HR PRN PRN Reason: CIWA-Ar 8-15 Metoprolol Tartrate (Metoprolol Tartrate 50 Mg Tab) 50 mg PO BID [facility] Last Admin: 10/15/21 21:47 Dose: 50 mg Nifedipine (Nifedipine Xl 60 Mg Tab) 60 mg PO Q12HR [facility] Last Admin: 10/15/21 21:46 Dose: 60 mg Oxycodone/Acetaminophen (Oxycodone /Acetaminophen 5-325mg Tab) 1 tab PO Q16H PRN PRN Reason: Pain, Moderate (4-6) Sodium Chloride (Sodium Chloride 0.9% 10 Ml Flush Syringe) 10 ml IV BID [facility] Last Admin: 10/15/21 22:58 Dose: 10 ml Sodium Chloride (Sodium Chloride 0.9% 10 Ml Flush Syringe) 10 ml IV PRN PRN PRN Reason: LINE FLUSH Exam - Vital Signs Vital signs: Vital Signs Temp Pulse Resp BP Pulse Ox 97.7 F 92 H 16 230/124 95 10/14/21 10:01 10/14/21 10:01 10/14/21 10:01 10/14/21 10:01 10/14/21 10:01 Results - Lab Results 10/16/21 04:53 10/16/21 04:53 Most recent lab results Calcium 9.3 mg/dL (8.4-10.2) 10/16/21 04:53 Phosphorus 2.80 mg/dL (2.5-4.5) 10/14/21 17:05 Magnesium 1.70 mg/dL (1.7-2.3) 10/14/21 19:03
[2021-10-16] MEDS: NIFEdipine XL 60 MG TAB PO SCH (10:14)
[2021-10-16] MEDS: METOPROLOL TARTRATE 50 MG TAB PO SCH (10:14)
--- NOTE | 2021-10-16 11:00 | Discharge Summary ---
<SEGUNDO RODRÍGUEZ - Last Filed: 10/16/21 18:03> Providers - Providers Date of Admission: 10/14/21 18:36 Date of discharge: 10/16/21 Attending physician: SHOSHANA DIXON MD 10/14/21 18:07 Consult to Physician [CONS] Urgent Comment: STAFFED WITH DR HARRISON Consulting Provider: HARVEY GONZALEZ Physician Instructions: Reason For Exam: SOB 10/15/21 13:32 Consult to Physician [CONS] Routine Comment: noted/ garry Consulting Provider: MILAD FORD Physician Instructions: Reason For Exam: HYPERTENSIVE EMERGENCY 10/15/21 13:33 Consult to Physician [CONS] Routine Comment: Consulting Provider: CORTNEY NAPIER Physician Instructions: Reason For Exam: FRANDY Primary care physician: ETIOLOGIST Hospitalization Reason for admission: Acute CHF exacerbation, Hypertensive emergency Condition: Stable Hospital course: This is a 55-year-old male with known past medical history of HTN, Nicotine Dependence, ETOH Dependence, and medical noncompliance admitted for Acute CHF exacerbation and hypertensive emergency Hospital Course to Date: 10/15: Mr. Leos was seen this morning clinically improving but blood pressure remains remarkably high. He states that he ran out of his medications about a month ago and due to insurance reasons has not followed up. Despite starting him on Lasix and also on Procardia blood pressure has not improved. He denies any headache or blurry vision. We will initiate labetalol drip. Cardiology has been consulted we will consult art conservator and transfer to the ICU for closer monitoring. I have discussed with the patient extensively he verbalized understand that while he continues to use alcohol he states that he has never gone through withdrawal symptoms. He states that he quit tobacco use about 6 months ago. I have also consulted nephrology due to acute kidney injury. 10/16: Patient stable this am. On RA, off cardene gtt this am, VSS. 2D echo reviewed, LVEF 30 to 35. Continue diuretics, BB, and current antihypertensive therapy. D/w Cardio, patient is stable for discharge. Plan of care thoroughly discussed with patient at the bedside. Recommended follow at [facility] within 7 to 10 days for medical management. All questions and concerns were addressed at this time. Patient verbalized understanding and agreed with current care plan. (1) Acute hypoxemic respiratory failure Current Visit: Yes Status: Acute Plan to address problem: Chest x-ray, supplemental oxygen, pulse oximetry, nebulizer therapy, noninvasive positive pressure ventilation as clinically indicated. (2) Systolic CHF (congestive heart failure) with reduced EF- 30-35% Current Visit: Yes Status: Acute Qualifiers: Heart failure type: systolic Heart failure chronicity: acute Qualified Code(s): I50.21 - Acute systolic (congestive) heart failure Plan to address problem: Strict I's/O, monitoring output every shift, daily weight, afterload reduction, blood pressure control, diuresis, cardiology team consulted, echocardiogram ordered and pending at time of admission, thyroid panel, magnesium level. (3) Accelerated hypertension Current Visit: Yes Status: Acute Plan to address problem: Continue medical management, blood pressure check as per nursing care protocol. (4) Nicotine dependence Current Visit: Yes Status: Acute Qualifiers: Nicotine product type: cigarettes Substance use status: in withdrawal Qualified Code(s): F17.213 - Nicotine dependence, cigarettes, with withdrawal Plan to address problem: Smoke cessation counseling, supportive care, behavior change counseling, +15 minutes. (5) Noncompliance with medication regimen Current Visit: No Status: Acute Plan to address problem: Patient counseled regarding compliance with medication, dietary and fluid restriction, and low sodium diet. Patient acknowledges understanding instructions, +30 minutes. Patient instructed to follow-up with primary care physician for all age and risk factor appropriate screening test. (6) FRANDY- Vasomotor Nephropathy (7) DVT prophylaxis Current Visit: Yes Status: Acute Plan to address problem: SCD to bilateral lower extremities while in bed (8) Advance care planning Current Visit: Yes Status: Acute Plan to address problem: Disease education done, care plan discussed, diagnoses discussed, prognosis discussed, patient is full code. Patient knowledges understanding and agreement with care plan, +30 minutes. (9) Preventative health care Current Visit: Yes Status: Acute Plan to address problem: Patient counseled regarding risk factor reduction, medication compliance, need for outpatient follow-up with primary care physician for all age and risk factor appropriate screening test. Disposition: 01 HOME / SELF CARE / HOMELESS Final Discharge Diagnosis (Prints w/discharge instructions): Systolic Heart Failure with reduced EF. Hypertension Time spent for discharge: 35 Core Measure Documentation - Palliative Care Palliative Care/ Comfort Measures: Not Applicable - Core Measures Any of the following diagnoses?: heart failure - Heart Failure Discharge Requirements MILY/ARB for LVSD if EF <40%: Yes Beta angeles at discharge: Yes Exam - Constitutional Vitals: Temp Pulse Resp BP Pulse Ox 98.3 F 92 H 18 145/82 92 10/16/21 04:00 10/16/21 10:14 10/16/21 10:00 10/16/21 10:14 10/16/21 10:00 General appearance: Present: no acute distress, well-nourished, obese - EENT Eyes: Present: PERRL, EOM intact ENT: hearing intact, clear oral mucosa - Neck Neck: Present: normal ROM - Respiratory Respiratory effort: normal Respiratory: bilateral: CTA - Cardiovascular Rhythm: regular Heart Sounds: Present: S1 & S2 - Extremities Extremities: no ischemia, pulses intact, pulses symmetrical Peripheral Pulses: within normal limits - Abdominal General gastrointestinal: Present: soft, non-distended, normal bowel sounds Male genitourinary: Present: deferred - Rectal Rectal Exam: deferred - Integumentary Integumentary: Present: clear, warm, dry - Musculoskeletal Musculoskeletal: strength equal bilaterally - Psychiatric Psychiatric: appropriate mood/affect, cooperative - Neurologic Neurologic: CNII-XII intact, moves all extremities - Allied Health Allied health notes reviewed: nursing, case management Plan Activity: no restrictions Diet: low fat, low cholesterol, low salt Wound: open to air Special Instructions: record daily weights, record daily BP diary, smoking cessation Care Plan Goals: Follow up with [facility] within 7 to 10 days for further management Take your medications as prescribed If your symptoms return visit your nearest emergency department for further evaluation and treatment Follow up with: [facility] [Provider Group] - 7 Days BECKI ALEGRIA MD [Staff Physician] - 7 Days Prescriptions: hydrALAZINE [Apresoline TAB] 50 mg PO Q8HR #90 tablet Felodipine [Felodipine ER] 10 mg PO QDAY #90 tab Furosemide [Lasix] 40 mg PO QDAY #90 tab Metoprolol [Lopressor TAB] 50 mg PO BID #90 tablet <SHOSHANA DIXON - Last Filed: 10/17/21 07:27> Providers - Providers Date of Admission: 10/14/21 18:36 Attending physician: SHOSHANA DIXON MD 10/14/21 18:07 Consult to Physician [CONS] Urgent Comment: STAFFED WITH DR HARRISON Consulting Provider: HARVEY GONZALEZ Physician Instructions: Reason For Exam: SOB 10/15/21 13:32 Consult to Physician [CONS] Routine Comment: noted/ garry Consulting Provider: MILAD FORD Physician Instructions: Reason For Exam: HYPERTENSIVE EMERGENCY 10/15/21 13:33 Consult to Physician [CONS] Routine Comment: Consulting Provider: CORTNEY NAPIER Physician Instructions: Reason For Exam: FRANDY Primary care physician: ETIOLOGIST Hospitalization Hospital course: I saw and evaluated the patient. I agree with the findings and the plan of care as documented in the Nurse Practitioner's~note, with the following corrections and additions. Exam - Constitutional Vitals: Temp Pulse Resp BP Pulse Ox 98.9 F 75 22 135/67 90 10/16/21 12:00 10/16/21 14:45 10/16/21 14:00 10/16/21 14:45 10/16/21 14:00
--- NOTE | 2021-10-16 14:22 | Progress Note ---
Assessment and Plan - Patient Problems (1) Uncontrolled hypertension Current Visit: Yes Status: Acute Plan to address problem: 55-year-old man history of longstanding hypertension, and moderate severity nonischemic cardiomyopathy, presents with uncontrolled hypertension due to noncompliance with his antihypertensive therapy for several months. Continue optimal antihypertensive therapy, with social staff worker consultation and intervention, to assist the patient with strategies for procuring outpatient medications and doctor follow-up visits. Hydralazine is substitute for MILY or ARB in the setting of chronic kidney disease. Subjective Date of service: 10/16/21 Principal diagnosis: Uncontrolled hypertension Interval history: Patient is comfortable in no acute distress, no chest pain, no further shortness of breath. Blood pressure is now 140s systolic on optimal medical therapy. Objective Vital Signs Temp Pulse Pulse Resp BP Pulse Ox 10/16/21 12:47 77 77 19 94 10/16/21 12:00 98.9 F 83 21 152/68 92 10/16/21 11:00 79 17 153/93 94 10/16/21 10:14 92 H 145/82 10/16/21 10:00 87 18 145/82 92 10/16/21 09:00 88 12 147/88 10/16/21 08:09 98.4 F 110 H 110 H 23 94 10/16/21 08:00 82 19 146/83 91 10/16/21 07:00 81 17 137/85 92 10/16/21 06:00 89 23 146/94 92 10/16/21 05:58 93 H 134/81 10/16/21 05:00 87 17 134/81 99 10/16/21 04:00 98.3 F 88 14 142/78 87 10/16/21 03:00 76 19 138/76 87 10/16/21 02:00 79 21 120/63 91 10/16/21 01:00 80 16 139/87 93 10/16/21 00:11 83 10/16/21 00:08 98 H 21 146/86 92 10/16/21 00:00 99 F 89 14 146/86 90 10/15/21 23:00 78 16 135/85 94 10/15/21 22:00 76 19 158/87 89 10/15/21 21:47 86 151/94 10/15/21 21:00 81 23 151/94 93 10/15/21 20:00 98.4 F 83 17 140/86 94 10/15/21 19:00 81 11 L 140/92 94 10/15/21 18:00 79 17 146/87 93 10/15/21 17:00 86 22 159/95 96 10/15/21 16:00 78 16 159/95 94 10/15/21 15:00 90 20 178/111 10/15/21 14:27 81 185/103 10/15/21 14:20 16 98 - Physical Examination HEENT: Positive: PERRL Neck: Positive: neck supple Cardiac: Positive: Reg Rate and Rhythm Lungs: Positive: Decreased Breath Sounds Neuro: Positive: Grossly Intact Abdomen: Positive: Soft Skin: Positive: Clear Extremities: Absent: edema - Labs and Meds CBC 10/16/21 Range/Units 04:53 WBC 8.5 (4.5-11.0) K/mm3 RBC 5.51 H (3.65-5.03) M/mm3 Hgb 16.4 H (11.8-15.2) gm/dl Hct 49.9 H (35.5-45.6) % Plt Count 265 (140-440) K/mm3 Comprehensive Metabolic Panel 10/16/21 Range/Units 04:53 Sodium 139 (137-145) mmol/L Potassium 4.5 (3.6-5.0) mmol/L Chloride 99.4 (98-107) mmol/L Carbon Dioxide 24 (22-30) mmol/L BUN 24 H (9-20) mg/dL Creatinine 1.5 H (0.8-1.3) mg/dL Glucose 118 H (75-100) mg/dL Calcium 9.3 (8.4-10.2) mg/dL
[2021-10-16 14:30] VITALS: BP 135/67
== END 2021-10-16 15:13 | disposition home or self-care (01) | DRG 291 ==
LOC: ED 07:58 → CC1 18:36 → IMCU 10-15 10:26 → CC1 10-15 13:51
PROVIDERS: ADMIT Internal Medicine; ATTEND Internal Medicine
DX: I11.0 Hypertensive heart disease with heart failure (principal); I50.21 Acute systolic (congestive) heart failure; J96.01 Acute respiratory failure with hypoxia; N17.0 Acute kidney failure with tubular necrosis; I16.1 Hypertensive emergency; F17.213 Nicotine dependence, cigarettes, with withdrawal; Z20.822 Contact with and (suspected) exposure to COVID-19; F10.20 Alcohol dependence, uncomplicated; Y90.9 Presence of alcohol in blood, level not specified; Z91.19 Patient's noncompliance with other medical treatment and regimen; E87.5 Hyperkalemia; Z82.49 Family history of ischemic heart disease and other diseases of the circulatory system
CPT/HCPCS: 36415; 71046; 71250; 80048; 80053; 81001; 83735; 83880; 84100; 84439; 84443; 84484; 85027; 93005; 93306; 94644; G0378; J3490; C8929; J0360; J0456; J1940; J2930; J7030; U0003